=== PATIENT | female | born 1940 | race Caucasian/White ===

== ENCOUNTER → 2017-02-12 | Outpatient (CLI) | payer MEDICARE, MEDICAID ==
[2017-02-12 10:54] LABS: ABSOLUTE EOSINOPHILS # (AUTO) 0.1 10^3/uL (0.0-0.6); ABSOLUTE LYMPHOCYTES (AUTO) 1.2 10^3/uL (0.5-4.7); ABSOLUTE MONOCYTES (AUTO) 0.4 10^3/uL (0.1-1.4); ABSOLUTE NEUT (AUTO) 4.6 10^3/uL (1.7-8.2); BASOPHILS % (AUTO) 0.5 % (0-2); EOSINOPHILS % (AUTO) 2.1 % (0-6); HEMATOCRIT 44.1 % (36.0-47.0); HEMOGLOBIN 14.8 g/dL (12.0-15.5); HGB HCT DIFFERENCE 0.3; LYMPHOCYTES % (AUTO) 18.2 % (13-45); MEAN CORPUSCULAR HEMOGLOBIN 30.7 pg (27.0-33.4); MEAN CORPUSCULAR HGB CONC 33.5 g/dL (32.0-36.0); MEAN CORPUSCULAR VOLUME 92 fl (80-97); MONOCYTES % (AUTO) 6.4 % (3-13); SEGMENTED NEUTROPHILS % (AUTO) 72.8 % (42-78); WHITE BLOOD COUNT 6.3 10^3/uL (4.0-10.5)
[2017-02-12 11:18] LABS: ALANINE AMINOTRANSFERASE 32 U/L (9-52); ALBUMIN 4.4 g/dL (3.5-5.0); ALKALINE PHOSPHATASE 78 U/L (38-126); ANION GAP 11 (5-19); ASPARTATE AMINO TRANSFERASE 26 U/L (14-36); BILIRUBIN,DIRECT 0.4 mg/dL (0.0-0.4); BILIRUBIN,TOTAL 0.6 mg/dL (0.2-1.3); BLOOD UREA NITROGEN 27 mg/dL (7-20); CALCIUM 10.4 mg/dL (8.4-10.2); CARBON DIOXIDE 27 mmol/L (22-30); CHLORIDE 105 mmol/L (98-107); Direct HDL 38 mg/dL (>40); GLUCOSE 124 mg/dL (75-110); SODIUM 142.9 mmol/L (137-145); TOTAL PROTEIN 7.9 g/dL (6.3-8.2); TRIGLYCERIDES 317 mg/dL (<150)
[2017-02-12 11:29] LABS: DIRECT LDL 136 mg/dL (<100)
[2017-02-12 11:34] LABS: VLDL CHOLESTEROL 63.4 mg/dL (10-31)
[2017-02-12 11:40] LABS: POTASSIUM 5.9 mmol/L (3.6-5.0)
== END ==
LOC: OD 09:31
PROVIDERS: ATTEND Internal Medicine
DX: I12.9 Hypertensive chronic kidney disease with stage 1 through stage 4 chronic kidney disease, or unspecified chronic kidney disease (principal); N18.9 Chronic kidney disease, unspecified; E11.9 Type 2 diabetes mellitus without complications; E78.5 Hyperlipidemia, unspecified; R53.82 Chronic fatigue, unspecified
CPT/HCPCS: 36415; 80053; 80061; 83036; 84443; 85025

== ENCOUNTER → 2017-03-11 | Outpatient (CLI) | payer MEDICARE, MEDICAID ==
[2017-03-11 13:00] LABS: MAGNESIUM 1.7 mg/dL (1.6-2.3)
== END ==
LOC: OD 11:58
PROVIDERS: ATTEND Internal Medicine
DX: E87.5 Hyperkalemia (principal)
CPT/HCPCS: 36415; 83735; 84132

== ENCOUNTER 2017-10-17 16:17 | Inpatient (IN) | payer MEDICARE, MEDICAID ==
[2017-10-17 16:59] LABS: ABSOLUTE LYMPHOCYTES (AUTO) 0.4 10^3/uL (0.5-4.7); ABSOLUTE MONOCYTES (AUTO) 0.3 10^3/uL (0.1-1.4); ABSOLUTE NEUT (AUTO) 5.5 10^3/uL (1.7-8.2); BASOPHILS % (AUTO) 0.2 % (0-2); EOSINOPHILS % (AUTO) 0.1 % (0-6); HEMATOCRIT 40.7 % (36.0-47.0); HEMOGLOBIN 14.1 g/dL (12.0-15.5); LYMPHOCYTES % (AUTO) 6.6 % (13-45); MEAN CORPUSCULAR HEMOGLOBIN 30.8 pg (27.0-33.4); MEAN CORPUSCULAR HGB CONC 34.6 g/dL (32.0-36.0); MEAN CORPUSCULAR VOLUME 89 fl (80-97); MONOCYTES % (AUTO) 5.1 % (3-13); PLATELET COUNT 332 10^3/uL (150-450); RED BLOOD COUNT 4.57 10^6/uL (3.72-5.28); RED CELL DISTRIBUTION WIDTH 13.3 % (11.5-14.0); TOTAL CELLS COUNTED % (AUTO) 100 %; WHITE BLOOD COUNT 6.2 10^3/uL (4.0-10.5)
--- NOTE | 2017-10-17 17:13 | RADIOLOGY REPORT (SQ) ---
EXAM DESCRIPTION: CHEST SINGLE VIEW COMPLETED DATE/TIME: 10/17/2017 4:51 pm REASON FOR STUDY: bed 8 db COMPARISON: February 2015 EXAM PARAMETERS: NUMBER OF VIEWS: One view. TECHNIQUE: Single frontal radiographic view of the chest acquired. RADIATION DOSE: NA LIMITATIONS: None. FINDINGS: LUNGS AND PLEURA: No opacities, masses or pneumothorax. No pleural effusion. MEDIASTINUM AND HILAR STRUCTURES: No masses. Contour normal. HEART AND VASCULAR STRUCTURES: Heart normal in size. Normal vasculature. BONES: No acute findings. HARDWARE: Shunt catheter is again identified overlying the right hemithorax medially. OTHER: No other significant finding. IMPRESSION: NO ACUTE RADIOGRAPHIC FINDING IN THE CHEST. TECHNICAL DOCUMENTATION: JOB ID: [id number] [employer]- All Rights Reserved
--- NOTE | 2017-10-17 17:24 | EKG REPORT ---
SEVERITY:- ABNORMAL ECG - SINUS TACHYCARDIA PROBABLE LEFT ATRIAL ABNORMALITY : Confirmed by: Yon Medina 17-Oct-2017 17:24:03
[2017-10-17] MEDS ORDERED: METHYLPREDNISOLONE INJ 125 MG/2 ML SDV IV ONE (18:22)
[2017-10-17] MEDS ORDERED: IPRATROPIUM/ALBUTEROL 0.5-2.5 MG/3 ML AMPUL NEB ONE (18:22)
--- NOTE | 2017-10-17 18:22 | ER Document Report ---
ED Respiratory Problem - General Chief Complaint: Breathing Difficulty Stated Complaint: BREATHING DIFFICULTY Time Seen by Provider: 10/17/17 17:35 Notes: Patient has been struggling with difficulty breathing for the last 2 weeks. Has been on antibiotics. Went to her primary care doctors today. Was apparently hypoxic and tachycardic with significant work of breathing. EMS was called. Patient brought to the hospital by EMS. Patient was given breathing treatments in route. Patient denies any recent surgeries. No prior history of blood clots. Denies any pain in her legs. Did have a fever but no fever today. TRAVEL OUTSIDE OF THE [place] IN LAST 30 DAYS: No - HPI Patient complains to provider of: COPD, Cough, Short of breath Onset: Last week Duration: Worse/persistent Short of Breath: Moderate Cough: Nonproductive Sputum amount: None - Related Data Allergies/Adverse Reactions: aspirin [Aspirin] Allergy (Mild, Verified 10/17/17 17:08) RASH Past Medical History - General Information source: Patient - Social History Smoking Status: Current Every Day Smoker Chew tobacco use (# tins/day): No Frequency of alcohol use: None Drug Abuse: None Lives with: Family Family History: Reviewed & Not Pertinent Patient has suicidal ideation: No Patient has homicidal ideation: No - Past Medical History Cardiac Medical History: Reports: Hx Hypertension Denies: Hx Heart Attack Pulmonary Medical History: Reports: Hx Bronchitis, Hx COPD, Hx Pneumonia Denies: Hx Asthma, Hx Tuberculosis Neurological Medical History: Denies: Hx Cerebrovascular Accident, Hx Seizures Endocrine Medical History: Reports: Hx Diabetes Mellitus Type 2 Renal/ Medical History: Denies: Hx Peritoneal Dialysis GI Medical History: Denies: Hx Hepatitis, Hx Hiatal Hernia, Hx Ulcer Psychiatric Medical History: Denies: Hx Depression Infectious Medical History: Denies: Hx Hepatitis Past Surgical History: Reports: Hx Cholecystectomy. Denies: Hx Hysterectomy, Hx Mastectomy, Hx Open Heart Surgery, Hx Pacemaker - Immunizations Hx Pneumococcal Vaccination: 09/25/14 Review of Systems - Review of Systems Constitutional: No symptoms reported, Fever. denies: Chills, Malaise, Weakness EENT: No symptoms reported. denies: Throat pain, Difficulty swallowing, Mouth pain Cardiovascular: No symptoms reported, Palpitations. denies: Heart racing, Syncope, Dizziness, Lightheaded Respiratory: No symptoms reported, Cough, Hurts to breathe, Short of breath, Wheezing Gastrointestinal: No symptoms reported. denies: Abdominal pain, Nausea, Vomiting Genitourinary: No symptoms reported. denies: Burning, Dysuria, Discharge Musculoskeletal: No symptoms reported. denies: Muscle pain, Muscle stiffness, Deformity, Leg swelling, Ankle swelling Skin: denies: Lesions, Lumps, Rash Hematologic/Lymphatic: No symptoms reported. denies: Anemia, Blood clots, Easy bleeding, Easy bruising Neurological/Psychological: No symptoms reported. denies: Confusion, Dementia, Depression, Weakness Physical Exam - Vital signs Vitals: Temp Pulse Resp BP Pulse Ox 98.2 F 98 18 119/71 94 10/17/17 16:44 10/17/17 16:44 10/17/17 16:44 10/17/17 16:44 10/17/17 16:44 Interpretation: Tachycardic, Tachypneic - General General appearance: Appears well, Alert - HEENT Head: Normocephalic, Atraumatic Eyes: Normal Pupils: PERRL - Respiratory Respiratory status: No respiratory distress Chest status: Nontender Breath sounds: Decreased air movement, Nonproductive cough, Wheezing Chest palpation: Normal - Cardiovascular Rhythm: Tachycardia Heart sounds: Normal auscultation Murmur: No - Abdominal Inspection: Normal Distension: No distension Bowel sounds: Normal Tenderness: Nontender Organomegaly: No organomegaly - Back Back: Normal, Nontender - Extremities General upper extremity: Normal inspection, Nontender, Normal color, Normal ROM , Normal temperature General lower extremity: Normal inspection, Nontender, Normal color, Normal ROM , Normal temperature, Normal weight bearing. No: Edema, Fco's sign - Neurological Neuro grossly intact: Yes Cognition: Normal Orientation: AAOx4 [place] Coma Scale Eye Opening: Spontaneous [place] Coma Scale Verbal: Oriented [place] Coma Scale Motor: Obeys Commands [place] Coma Scale Total: 15 Speech: Normal Motor strength normal: LUE, RUE, LLE, RLE Sensory: Normal - Psychological Associated symptoms: Normal affect, Normal mood - Skin Skin Temperature: Warm Skin Moisture: Dry Skin Color: Normal Course - Re-evaluation Re-evalutation: 10/17/17 19:11 Patient with long-standing history of tobacco use. Increased wheezing and worsening symptoms. Sinus tachycardia. Patient likely with failed outpatient treatment for COPD exacerbation. Will get labs, breathing treatment, steroids and possible admit. 10/17/17 20:06 Laboratory 10/17/17 10/17/17 10/17/17 16:48 16:48 16:48 WBC 6.2 RBC 4.57 Hgb 14.1 Hct 40.7 MCV 89 MCH 30.8 MCHC 34.6 RDW 13.3 Plt Count 332 Seg Neutrophils % 88.0 H Lymphocytes % 6.6 L Monocytes % 5.1 Eosinophils % 0.1 Basophils % 0.2 Absolute Neutrophils 5.5 Absolute Lymphocytes 0.4 L Absolute Monocytes 0.3 Absolute Eosinophils 0.0 Absolute Basophils 0.0 D-Dimer Sodium Cancelled Potassium Cancelled Chloride Cancelled Carbon Dioxide Cancelled Anion Gap Cancelled BUN Cancelled Creatinine Cancelled Est GFR ( Amer) Cancelled Est GFR (Non-Af Amer) Cancelled Glucose Cancelled Calcium Cancelled Total Bilirubin Cancelled Direct Bilirubin Cancelled Neonat Total Bilirubin Cancelled Neonat Direct Bilirubin Cancelled Neonat Indirect Bili Cancelled AST Cancelled ALT Cancelled Alkaline Phosphatase Cancelled Creatine Kinase Cancelled CK-MB (CK-2) Cancelled Troponin I Cancelled Total Protein Cancelled Albumin Cancelled 10/17/17 10/17/17 10/17/17 18:48 18:48 18:48 WBC RBC Hgb Hct MCV MCH MCHC RDW Plt Count Seg Neutrophils % Lymphocytes % Monocytes % Eosinophils % Basophils % Absolute Neutrophils Absolute Lymphocytes Absolute Monocytes Absolute Eosinophils Absolute Basophils D-Dimer 0.35 Sodium 144.2 Potassium 3.4 L Chloride 104 Carbon Dioxide 26 Anion Gap 14 BUN 16 Creatinine 1.39 H Est GFR ( Amer) 45 L Est GFR (Non-Af Amer) 37 L Glucose 186 H Calcium 10.0 Total Bilirubin 0.4 Direct Bilirubin 0.3 Neonat Total Bilirubin Not Reportable Neonat Direct Bilirubin Not Reportable Neonat Indirect Bili Not Reportable AST 27 ALT 51 Alkaline Phosphatase 68 Creatine Kinase 72 CK-MB (CK-2) 2.44 Troponin I 0.016 Total Protein 7.1 Albumin 4.3 Chest X-Ray 10/17/17 16:19 IMPRESSION: NO ACUTE RADIOGRAPHIC FINDING IN THE CHEST. - Vital Signs Vital signs: Temp Pulse Resp BP Pulse Ox 98.2 F 101 H 26 H 119/71 94 10/17/17 17:03 10/17/17 17:03 10/17/17 19:00 10/17/17 17:03 10/17/17 17:03 - Laboratory Result Diagrams: 10/17/17 16:48 10/17/17 18:48 Laboratory results interpreted by me: 10/17/17 10/17/17 16:48 18:48 Seg Neutrophils % 88.0 H Lymphocytes % 6.6 L Absolute Lymphocytes 0.4 L Potassium 3.4 L Creatinine 1.39 H Est GFR ( Amer) 45 L Est GFR (Non-Af Amer) 37 L Glucose 186 H - EKG Interpretation by Nv EKG shows normal: [place], Intervals, QRS Complexes, ST-T Waves Rate: Tachycardia Rhythm: APC's Discharge - Discharge Clinical Impression: COPD exacerbation Condition: Good Unit Admitted: Telemetry Referrals: BRENNAN FELICIANO MD [Primary Care Provider] - Follow up as needed
[2017-10-17 19:24] LABS: ALANINE AMINOTRANSFERASE 51 U/L (9-52); ALBUMIN 4.3 g/dL (3.5-5.0); ALKALINE PHOSPHATASE 68 U/L (38-126); ANION GAP 14 (5-19); ASPARTATE AMINO TRANSFERASE 27 U/L (14-36); BILIRUBIN,DIRECT 0.3 mg/dL (0.0-0.4); BILIRUBIN,TOTAL 0.4 mg/dL (0.2-1.3); BLOOD UREA NITROGEN 16 mg/dL (7-20); CARBON DIOXIDE 26 mmol/L (22-30); CHLORIDE 104 mmol/L (98-107); CREATINE KINASE 72 U/L (30-135); GLUCOSE 186 mg/dL (75-110); POTASSIUM 3.4 mmol/L (3.6-5.0); SODIUM 144.2 mmol/L (137-145); TOTAL PROTEIN 7.1 g/dL (6.3-8.2)
[2017-10-17 19:35] LABS: CREATINE KINASE MB 2.44 ng/mL (<4.55); TROPONIN I 0.016 ng/mL
[2017-10-17] MEDS ORDERED: CEFTRIAXONE 1 GM/D5W RTU 1 GM/50 ML RTUPB IV ONE (19:40)
[2017-10-17] MEDS ORDERED: DOXYCYCLINE HYCLATE 100 MG TABLET PO ONE (19:41)
[2017-10-17] MEDS ORDERED: HYDRALAZINE HCL INJ/PF 20 MG/1 ML SDV IV PRN (20:13)
[2017-10-17] MEDS ORDERED: IPRATROPIUM/ALBUTEROL 0.5-2.5 MG/3 ML AMPUL NEB PRN (20:14)
[2017-10-17] MEDS ORDERED: GLUCAGON,HUMAN RECOMB 1 MG INJ IM PRN (20:14)
[2017-10-17] MEDS ORDERED: GUAIFENESIN SYRP 200 MG/10 ML UDC PO PRN (20:14)
[2017-10-17] MEDS ORDERED: DEXTROSE 40% GEL 15 GM TUBE PO PRN ×2 (20:14)
[2017-10-17] MEDS ORDERED: DEXTROSE 50%-WATER 25 GM/50 ML DISP.SYRIN IV PRN ×2 (20:14)
[2017-10-17 20:53] LABS: COLOR,URINE YELLOW
[2017-10-17 20:54] LABS: BILIRUBIN,URINE MODERATE (NEGATIVE); GLUCOSE, URINE NEGATIVE (NEGATIVE); KETONES,URINE 25 mg/dL (NEGATIVE); URINE SPECIFIC GRAVITY 1.029
[2017-10-17 20:55] LABS: NITRITE,URINE NEGATIVE (NEGATIVE); PROTEIN,URINE 100 mg/dL (NEGATIVE)
[2017-10-17 20:56] LABS: LEUKOCYTE ESTERASE,URINE LARGE (NEGATIVE)
[2017-10-17 20:57] LABS: APPEARANCE,URINE SLIGHTLY-CLOUDY
[2017-10-17] MEDS ORDERED: CEFTRIAXONE SODIUM 1,000 MG in DEXTROSE 5%-WATER 50 ML IV SCH (21:00)
[2017-10-17] MEDS ORDERED: CHLORPHENIRAMINE MALEATE 4 MG TABLET PO ONE (21:00)
[2017-10-17] MEDS ORDERED: LEVOFLOXACIN 750 MG/D5W RTU 750 MG/150 ML RTUPB IV SCH (22:00)
[2017-10-17] MEDS: FLUTICASONE NASAL SPRAY 50 MCG/SPRY 120 SPRAY/16 GM NASL SCH (22:24)
[2017-10-17] MEDS ORDERED: ALPRAZOLAM 0.5 MG TABLET PO PRN (22:24)
[2017-10-17] MEDS: GUAIFENESIN 600 MG TABLET.SA PO SCH (22:24)
[2017-10-17] MEDS: HEPARIN SOD (PORCINE) 5,000 UNIT/ML 1 ML SYRINGE SUBCUT SCH (22:26)
[2017-10-17] MEDS: INSULIN LISPRO 100 UNIT/ML 3 ML VIAL SUBCUT PRN (23:45)
[2017-10-18] MEDS ORDERED: INFLUENZA ADLT QUAD (36MOS+) 2017-18 VAC 0.5 ML SYR IM PRN (00:43)
[2017-10-18] MEDS: IPRATROPIUM/ALBUTEROL 0.5-2.5 MG/3 ML AMPUL NEB SCH ×4 (02:07→19:31)
--- NOTE | 2017-10-18 03:57 | PDOC H&P ---
History of Present Illness Admission Date/PCP: 10/17/17 21:01 BRENNAN FELICIANO, Patient complains of: Shortness of breath History of Present Illness: KASANDRA GRIGGS is a 77 year old female with a past medical history of hypertension, diabetes, TTP, benzodiazepine dependent anxiety, COPD, Tobacco Dependence, and acute on chronic bronchitis. Patient has failed outpatient treatment of bronchitis with a small round pink tablet antibiotic once a day ( unknown to the patient). She followed up with primary care today and was found hypoxic, tachypneic and referred to the emergency department. In the emergency room she was found to be tachypneic with oxygen saturations in the 80s on room air but an otherwise unremarkable workup. She receives Rocephin, albuterol and Atrovent then referred to the hospitalist for admission. Patient admits sinus drainage and rhinorrhea, denies chest pain palpitations or GERD. Past Medical History Cardiac Medical History: Reports: Hypertension Denies: Myocardial Infarction Pulmonary Medical History: Reports: Bronchitis, Chronic Obstructive Pulmonary Disease (COPD), Pneumonia Denies: Asthma, Tuberculosis Neurological Medical History: Denies: Seizures Endocrine Medical History: Reports: Diabetes Mellitus Type 2 GI Medical History: Denies: Hepatitis, Hiatal Hernia Psychiatric Medical History: Reports: General Anxiety Disorder Denies: Depression Hematology: Denies: Anemia, Sickle Cell Disease Past Surgical History Past Surgical History: Reports: Cholecystectomy Denies: Amputation, Hysterectomy, Mastectomy, Pacemaker Social History Information Source: Patient, [facility] Records Lives with: Family Smoking Status: Current Every Day Smoker Frequency of Alcohol Use: None Hx Recreational Drug Use: No Drugs: None Hx Prescription Drug Abuse: No - Advance Directive Resuscitation Status: Full Code Family History Family History: Hypertension Parental Family History Reviewed: Yes Children Family History Reviewed: Yes Sibling(s) Family History Reviewed.: Yes Medication/Allergy Home Medications: Albuterol Sulfate [Ventolin HFA MDI 18 GM] 2 puff IH Q6HP PRN 10/17/17 Alprazolam [Xanax 0.5 mg Tablet] 0.5 mg PO Q8HP PRN 10/17/17 Atorvastatin Calcium [Lipitor 10 mg Tablet] 10 mg PO DAILY 10/17/17 Budesonide/Formoterol Fumarate [Symbicort 160-4.5 Mcg Inhaler] 2 puff IH Q12 Fluoxetine HCl [Prozac] 40 mg PO QAM 10/17/17 Hydrochlorothiazide [Hydrodiuril 25 mg Tablet] 25 mg PO QAM 10/17/17 Metformin HCl [Metformin HCl ER] 500 mg PO BIDBS 10/17/17 Omeprazole 20 mg PO DAILY 10/17/17 Allergies/Adverse Reactions: aspirin [Aspirin] Allergy (Mild, Verified 10/17/17 17:08) RASH Review of Systems Constitutional: ABSENT: chills, fever(s), headache(s), weight gain, weight loss Eyes: ABSENT: visual disturbances Ears: ABSENT: hearing changes Cardiovascular: ABSENT: chest pain, dyspnea on exertion, edema, orthropnea, palpitations Respiratory: ABSENT: cough, hemoptysis Gastrointestinal: ABSENT: abdominal pain, constipation, diarrhea, hematemesis, hematochezia, nausea, vomiting Genitourinary: ABSENT: dysuria, hematuria Musculoskeletal: ABSENT: joint swelling Integumentary: ABSENT: rash, wounds Neurological: ABSENT: abnormal gait, abnormal speech, confusion, dizziness, focal weakness, syncope Psychiatric: ABSENT: anxiety, depression, homidical ideation, suicidal ideation Endocrine: ABSENT: cold intolerance, heat intolerance, polydipsia, polyuria Hematologic/Lymphatic: ABSENT: easy bleeding, easy bruising Physical Exam Vital Signs: Temp Pulse Resp BP Pulse Ox 98.0 F 79 16 145/84 H 95 10/18/17 00:31 10/18/17 02:09 10/18/17 02:09 10/18/17 00:31 10/18/17 02:09 Intake & Output 10/16/17 10/17/17 10/18/17 11:59 11:59 11:59 Weight 61.2 kg General appearance: PRESENT: cooperative, mild distress Head exam: PRESENT: atraumatic, normocephalic Eye exam: PRESENT: conjunctival injection, EOMI, PERRLA. ABSENT: conjunctiva pale, scleral icterus Ear exam: PRESENT: normal external ear exam Mouth exam: PRESENT: moist, tongue midline Neck exam: ABSENT: carotid bruit, JVD, lymphadenopathy, thyromegaly Respiratory exam: PRESENT: accessory muscle use, clear to auscultation earnest, crackles, symmetrical, tachypnea. ABSENT: rales, rhonchi, stridor, wheezes Cardiovascular exam: PRESENT: RRR. ABSENT: diastolic murmur, rubs, systolic murmur Pulses: PRESENT: normal dorsalis pedis pul Vascular exam: PRESENT: normal capillary refill GI/Abdominal exam: PRESENT: normal bowel sounds, soft. ABSENT: distended, guarding, mass, organolmegaly, rebound, tenderness Rectal exam: PRESENT: deferred Extremities exam: PRESENT: full ROM. ABSENT: calf tenderness, clubbing, pedal edema Neurological exam: PRESENT: alert, awake, oriented to person, oriented to place , oriented to time, oriented to situation, CN II-XII grossly intact. ABSENT: motor sensory deficit Psychiatric exam: PRESENT: anxious Skin exam: PRESENT: dry, intact, warm. ABSENT: cyanosis, rash Results Laboratory Results: 10/17/17 10/18/17 22:30 02:56 Lactic Acid 4.2 H 3.4 H Impressions: Chest X-Ray 10/17/17 16:19 IMPRESSION: NO ACUTE RADIOGRAPHIC FINDING IN THE CHEST. Assessment & Plan - Diagnosis (1) Acute exacerbation of chronic bronchitis Is this a current diagnosis for this admission?: Yes Plan: Complicated by COPD currently requiring oxygen. Telemetry observation flutter valve, incentive spirometry, Flonase, chlorpheniramine, albuterol and Atrovent, empiric antibiotics. (2) COPD exacerbation Is this a current diagnosis for this admission?: Yes Plan: Please see #1 (3) Anxiety Is this a current diagnosis for this admission?: Yes Plan: Low-dose Xanax as needed (4) Tobacco dependency Is this a current diagnosis for this admission?: Yes Plan: Tobacco Dependence patient received tobacco cessation counseling and offered nicotine replacement options (5) Diabetes mellitus Is this a current diagnosis for this admission?: Yes Plan: Home regiment with sliding scale insulin - Time Time Spent: 50 to 70 Minutes
[2017-10-18] MEDS: HEPARIN SOD (PORCINE) 5,000 UNIT/ML 1 ML SYRINGE SUBCUT SCH ×3 (05:30→22:10)
--- NOTE | 2017-10-18 09:07 | PDOC PROGRESS REPORT ---
Subjective Progress Note for:: 10/18/17 Subjective:: The patient continues to be short of breath. She states that she has a lot of cough. Reason For Visit: COPD EXACERBATION ACUTE ON CHRONIC BRONCHITIS Physical Exam Vital Signs: Temp Pulse Resp BP Pulse Ox 98.1 F 103 H 24 H 126/64 H 88 L 10/18/17 03:42 10/18/17 08:09 10/18/17 08:09 10/18/17 03:42 10/18/17 08:09 Intake & Output 10/17/17 10/18/17 10/19/17 06:59 06:59 06:59 Weight 61.2 kg General appearance: PRESENT: mild distress Head exam: PRESENT: atraumatic Eye exam: PRESENT: conjunctival injection Neck exam: ABSENT: carotid bruit, JVD Respiratory exam: PRESENT: rhonchi, tachypnea, wheezes Cardiovascular exam: PRESENT: RRR, +S1, +S2 Pulses: PRESENT: +1 pedal pulses bilateral GI/Abdominal exam: PRESENT: normal bowel sounds, soft Extremities exam: PRESENT: full ROM, tenderness Musculoskeletal exam: PRESENT: ambulatory, tenderness Neurological exam: PRESENT: alert, awake Results Laboratory Results: 10/17/17 10/18/17 22:30 02:56 Lactic Acid 4.2 H 3.4 H Impressions: Chest X-Ray 10/17/17 16:19 IMPRESSION: NO ACUTE RADIOGRAPHIC FINDING IN THE CHEST. Assessment & Plan - Diagnosis (1) Acute exacerbation of chronic bronchitis Is this a current diagnosis for this admission?: Yes Plan: We will continue with steroids and antibiotics (2) Anxiety Is this a current diagnosis for this admission?: Yes Plan: We will increase Xanax to every 6 hours (3) COPD exacerbation Is this a current diagnosis for this admission?: Yes Plan: Continue steroids and nebulization treatments (4) Tobacco dependency Is this a current diagnosis for this admission?: Yes (5) Diabetes mellitus Qualifiers: Diabetes mellitus type: type 2 Diabetes mellitus complication status: without complication Is this a current diagnosis for this admission?: Yes Plan: Because of steroids IV will continue with insulin sliding scale and continue with Metformin
[2017-10-18] MEDS: LANSOPRAZOLE 15 MG TAB.RAP.DR PO SCH (09:46)
[2017-10-18] MEDS: ATORVASTATIN CALCIUM 10 MG TABLET PO SCH (09:46)
[2017-10-18] MEDS: CEFTRIAXONE SODIUM 1,000 MG in DEXTROSE 5%-WATER 50 ML IV SCH (09:47)
[2017-10-18] MEDS: GUAIFENESIN 600 MG TABLET.SA PO SCH ×2 (09:47→22:10)
[2017-10-18] MEDS: ALPRAZOLAM 0.5 MG TABLET PO PRN ×2 (09:47→16:53)
[2017-10-18] MEDS: FLUTICASONE NASAL SPRAY 50 MCG/SPRY 120 SPRAY/16 GM NASL SCH ×2 (09:56→22:10)
[2017-10-18] MEDS ORDERED: CEFTRIAXONE 1 GM/D5W RTU 50 ML IV SCH (10:00)
[2017-10-18] MEDS ORDERED: LEVOFLOXACIN 500 MG TABLET PO SCH (10:00)
[2017-10-18] MEDS ORDERED: FLUOXETINE HCL 20 MG CAPSULE PO ONE (10:30)
[2017-10-18] MEDS ORDERED: FLUCONAZOLE 100 MG TABLET PO ONE ×2 (12:30→16:45)
[2017-10-18] MEDS: METHYLPREDNISOLONE INJ 125 MG/2 ML SDV IV SCH ×2 (16:36→18:08)
[2017-10-18] MEDS: METFORMIN HCL 500 MG TABLET PO SCH (16:53)
[2017-10-18] MEDS ORDERED: (PENDING PHARMACY ID) (Metformin Hcl [Metformin Hcl Er] 500 MG) PO SCH (17:00)
[2017-10-18] MEDS: INSULIN LISPRO 100 UNIT/ML 3 ML VIAL SUBCUT PRN (22:42)
[2017-10-19] MEDS: METHYLPREDNISOLONE INJ 125 MG/2 ML SDV IV SCH ×4 (00:04→16:58)
[2017-10-19] MEDS: IPRATROPIUM/ALBUTEROL 0.5-2.5 MG/3 ML AMPUL NEB SCH ×4 (01:41→20:30)
[2017-10-19 05:31] LABS: ANION GAP 12 (5-19); BLOOD UREA NITROGEN 34 mg/dL (7-20); CARBON DIOXIDE 25 mmol/L (22-30); CHLORIDE 105 mmol/L (98-107); GLUCOSE 195 mg/dL (75-110); MAGNESIUM 1.5 mg/dL (1.6-2.3); POTASSIUM 3.9 mmol/L (3.6-5.0); SODIUM 142.4 mmol/L (137-145)
[2017-10-19] MEDS: HEPARIN SOD (PORCINE) 5,000 UNIT/ML 1 ML SYRINGE SUBCUT SCH ×3 (05:34→21:08)
[2017-10-19] MEDS: FLUOXETINE HCL 20 MG CAPSULE PO SCH (08:08)
[2017-10-19] MEDS: METFORMIN HCL 500 MG TABLET PO SCH ×2 (08:08→16:58)
[2017-10-19] MEDS: INSULIN LISPRO 100 UNIT/ML 3 ML VIAL SUBCUT PRN ×4 (08:08→21:21)
[2017-10-19] MEDS: ATORVASTATIN CALCIUM 10 MG TABLET PO SCH (10:20)
[2017-10-19] MEDS: CEFTRIAXONE SODIUM 1,000 MG in DEXTROSE 5%-WATER 50 ML IV SCH (10:21)
[2017-10-19] MEDS: GUAIFENESIN 600 MG TABLET.SA PO SCH ×2 (10:21→21:08)
[2017-10-19] MEDS: LANSOPRAZOLE 15 MG TAB.RAP.DR PO SCH (10:21)
[2017-10-19] MEDS: FLUTICASONE NASAL SPRAY 50 MCG/SPRY 120 SPRAY/16 GM NASL SCH ×2 (10:21→21:17)
--- NOTE | 2017-10-19 10:38 | PDOC PROGRESS REPORT ---
Subjective Progress Note for:: 10/19/17 Subjective:: Patient denies any complaints today. Reason For Visit: EXAC COPD Physical Exam Vital Signs: Temp Pulse Resp BP Pulse Ox 98.0 F 99 20 132/80 H 92 10/19/17 07:57 10/19/17 07:57 10/19/17 07:57 10/19/17 07:57 10/19/17 07:57 Intake & Output 10/18/17 10/19/17 10/20/17 06:59 06:59 06:59 Intake Total 340 Balance 340 Weight 63.7 kg General appearance: PRESENT: no acute distress Eye exam: PRESENT: conjunctiva pink. ABSENT: scleral icterus Mouth exam: PRESENT: moist, tongue midline Neck exam: ABSENT: JVD Respiratory exam: PRESENT: clear to auscultation earnest. ABSENT: rales, rhonchi, wheezes Cardiovascular exam: PRESENT: RRR. ABSENT: diastolic murmur, rubs, systolic murmur GI/Abdominal exam: PRESENT: normal bowel sounds, soft. ABSENT: distended, guarding, mass, organolmegaly, rebound, tenderness Extremities exam: ABSENT: calf tenderness, clubbing, pedal edema Neurological exam: PRESENT: alert, awake, oriented to person, oriented to place , oriented to time, oriented to situation, CN II-XII grossly intact. ABSENT: motor sensory deficit Psychiatric exam: PRESENT: appropriate affect Skin exam: PRESENT: dry, intact, warm. ABSENT: cyanosis, rash Results Laboratory Results: 10/19/17 04:08 10/19/17 04:08 Sodium 142.4 Potassium 3.9 Chloride 105 Carbon Dioxide 25 Anion Gap 12 BUN 34 H Creatinine 1.16 Est GFR ( Amer) 55 L Est GFR (Non-Af Amer) 45 L Glucose 195 H Calcium 10.0 Magnesium 1.5 L Impressions: Chest X-Ray 10/17/17 16:19 IMPRESSION: NO ACUTE RADIOGRAPHIC FINDING IN THE CHEST. Assessment & Plan - Diagnosis (1) Acute exacerbation of chronic bronchitis Is this a current diagnosis for this admission?: Yes Plan: Currently on Rocephin and Levaquin. (2) Anxiety Is this a current diagnosis for this admission?: Yes (3) COPD exacerbation Is this a current diagnosis for this admission?: Yes Plan: Continue with Solu-Medrol. (4) Tobacco dependency Is this a current diagnosis for this admission?: Yes (5) Diabetes mellitus Qualifiers: Diabetes mellitus type: type 2 Diabetes mellitus complication status: without complication Is this a current diagnosis for this admission?: Yes Plan: On Glucophage and sliding scale insulin. - Time Time Spent with patient: 25-34 minutes - Inpatient Certification Medical Necessity: Need for IV Antibiotics
[2017-10-19] MEDS: ALPRAZOLAM 0.5 MG TABLET PO PRN ×2 (13:38→21:08)
[2017-10-19] MEDS: ACETAMINOPHEN 325 MG TABLET PO PRN (16:58)
[2017-10-19] MEDS ORDERED: LEVOFLOXACIN 750 MG TABLET PO SCH (22:00)
[2017-10-20] MEDS: METHYLPREDNISOLONE INJ 125 MG/2 ML SDV IV SCH ×3 (01:25→11:53)
[2017-10-20] MEDS: IPRATROPIUM/ALBUTEROL 0.5-2.5 MG/3 ML AMPUL NEB SCH ×4 (02:54→21:06)
[2017-10-20] MEDS: HEPARIN SOD (PORCINE) 5,000 UNIT/ML 1 ML SYRINGE SUBCUT SCH ×3 (06:21→22:41)
[2017-10-20] MEDS: ACETAMINOPHEN 325 MG TABLET PO PRN ×2 (06:32→19:23)
[2017-10-20] MEDS: FLUOXETINE HCL 20 MG CAPSULE PO SCH (07:51)
[2017-10-20] MEDS: METFORMIN HCL 500 MG TABLET PO SCH ×2 (07:51→17:07)
[2017-10-20] MEDS: INSULIN LISPRO 100 UNIT/ML 3 ML VIAL SUBCUT PRN ×3 (07:51→17:07)
[2017-10-20] MEDS: ATORVASTATIN CALCIUM 10 MG TABLET PO SCH (09:51)
[2017-10-20] MEDS: CEFTRIAXONE SODIUM 1,000 MG in DEXTROSE 5%-WATER 50 ML IV SCH (09:52)
[2017-10-20] MEDS: FLUTICASONE NASAL SPRAY 50 MCG/SPRY 120 SPRAY/16 GM NASL SCH ×2 (09:52→22:41)
[2017-10-20] MEDS: GUAIFENESIN 600 MG TABLET.SA PO SCH ×2 (09:52→22:41)
[2017-10-20] MEDS: LANSOPRAZOLE 15 MG TAB.RAP.DR PO SCH (09:52)
--- NOTE | 2017-10-20 13:04 | PDOC PROGRESS REPORT ---
Subjective Progress Note for:: 10/20/17 Subjective:: Patient denies any complaints today. Reason For Visit: EXAC COPD Physical Exam Vital Signs: Temp Pulse Resp BP Pulse Ox 97.3 F 102 H 19 142/83 H 96 10/20/17 12:00 10/20/17 12:00 10/20/17 12:00 10/20/17 12:00 10/20/17 12:00 Intake & Output 10/19/17 10/20/17 10/21/17 06:59 06:59 06:59 Intake Total 340 1420 Balance 340 1420 Weight 63.7 kg 62.6 kg General appearance: PRESENT: no acute distress Eye exam: PRESENT: conjunctiva pink. ABSENT: scleral icterus Mouth exam: PRESENT: moist, tongue midline Neck exam: ABSENT: JVD Respiratory exam: PRESENT: clear to auscultation earnest. ABSENT: rales, rhonchi, wheezes Cardiovascular exam: PRESENT: RRR. ABSENT: diastolic murmur, rubs, systolic murmur GI/Abdominal exam: PRESENT: normal bowel sounds, soft. ABSENT: distended, guarding, mass, organolmegaly, rebound, tenderness Extremities exam: ABSENT: calf tenderness, clubbing, pedal edema Neurological exam: PRESENT: alert, awake, oriented to person, oriented to place , oriented to time, oriented to situation, CN II-XII grossly intact. ABSENT: motor sensory deficit Psychiatric exam: PRESENT: appropriate affect Skin exam: PRESENT: dry, intact, warm. ABSENT: cyanosis, rash Results Laboratory Results: 10/19/17 04:08 Impressions: Chest X-Ray 10/17/17 16:19 IMPRESSION: NO ACUTE RADIOGRAPHIC FINDING IN THE CHEST. Assessment & Plan - Diagnosis (1) Acute exacerbation of chronic bronchitis Is this a current diagnosis for this admission?: Yes Plan: Currently on Rocephin and Levaquin. (2) Anxiety Is this a current diagnosis for this admission?: Yes (3) COPD exacerbation Is this a current diagnosis for this admission?: Yes Plan: she continues to improve. Will DC the Solu-Medrol and start on prednisone. (4) Tobacco dependency Is this a current diagnosis for this admission?: Yes (5) Diabetes mellitus Qualifiers: Diabetes mellitus type: type 2 Diabetes mellitus complication status: without complication Is this a current diagnosis for this admission?: Yes Plan: On Glucophage and sliding scale insulin. - Time Time Spent with patient: 15-24 minutes - Inpatient Certification Medical Necessity: Need for IV Antibiotics
[2017-10-20] MEDS: ALPRAZOLAM 0.5 MG TABLET PO PRN (19:23)
[2017-10-21] MEDS: IPRATROPIUM/ALBUTEROL 0.5-2.5 MG/3 ML AMPUL NEB SCH ×4 (01:48→20:34)
[2017-10-21 05:11] LABS: HEMATOCRIT 37.3 % (36.0-47.0); HEMOGLOBIN 12.6 g/dL (12.0-15.5); MEAN CORPUSCULAR HEMOGLOBIN 30.4 pg (27.0-33.4); MEAN CORPUSCULAR HGB CONC 33.7 g/dL (32.0-36.0); MEAN CORPUSCULAR VOLUME 90 fl (80-97); PLATELET COUNT 266 10^3/uL (150-450); RED BLOOD COUNT 4.14 10^6/uL (3.72-5.28); RED CELL DISTRIBUTION WIDTH 13.4 % (11.5-14.0); WHITE BLOOD COUNT 8.1 10^3/uL (4.0-10.5)
[2017-10-21 05:25] LABS: ANION GAP 13 (5-19); BLOOD UREA NITROGEN 50 mg/dL (7-20); CALCIUM 9.7 mg/dL (8.4-10.2); CARBON DIOXIDE 25 mmol/L (22-30); CHLORIDE 107 mmol/L (98-107); GLUCOSE 186 mg/dL (75-110); POTASSIUM 3.6 mmol/L (3.6-5.0); SODIUM 144.9 mmol/L (137-145)
[2017-10-21 06:04] LABS: ABSOLUTE LYMPHOCYTES# (MANUAL) 0.4 10^3/uL (0.5-4.7); ABSOLUTE MONOCYTES # (MANUAL) 0.5 10^3/uL (0.1-1.4); ABSOLUTE NEUTROPHILS# (MANUAL) 7.2 10^3/uL (1.7-8.2); BASOPHILS % (MANUAL) 0 % (0-2); EOSINOPHILS % (MANUAL) 0 % (0-6); LYMPHOCYTES % (MANUAL) 5 % (13-45); MONOCYTES % (MANUAL) 6 % (3-13); SEGMENTED NEUTROPHILS % (MAN) 89 % (42-78); TOTAL CELLS COUNTED 100
[2017-10-21 06:07] LABS: PLATELET COMMENT ADEQUATE; RBC MORPHOLOGY COMMENT NORMO-CYTIC/CHROMIC
[2017-10-21] MEDS: HEPARIN SOD (PORCINE) 5,000 UNIT/ML 1 ML SYRINGE SUBCUT SCH ×3 (06:15→23:14)
--- NOTE | 2017-10-21 08:35 | PDOC PROGRESS REPORT ---
Subjective Progress Note for:: 10/21/17 Subjective:: The patient is complaining of being very weak. She does not feel well. Her cough has improved slightly. She is not as short of breath as she was when she came in. Discussed the need for rehab to improve her stamina Reason For Visit: EXAC COPD Physical Exam Vital Signs: Temp Pulse Resp BP Pulse Ox 97.6 F 82 20 147/80 H 100 10/21/17 04:53 10/21/17 07:00 10/21/17 04:53 10/21/17 04:53 10/21/17 04:53 Intake & Output 10/20/17 10/21/17 10/22/17 06:59 06:59 06:59 Intake Total 1420 1180 Balance 1420 1180 Weight 62.6 kg 62.8 kg General appearance: PRESENT: mild distress Head exam: PRESENT: atraumatic Eye exam: PRESENT: conjunctival injection Neck exam: PRESENT: carotid bruit. ABSENT: JVD Respiratory exam: PRESENT: rhonchi. ABSENT: wheezes Cardiovascular exam: PRESENT: RRR, +S1, +S2 GI/Abdominal exam: PRESENT: normal bowel sounds, soft Extremities exam: PRESENT: tenderness Musculoskeletal exam: PRESENT: other Neurological exam: PRESENT: awake Results Laboratory Results: 10/21/17 04:12 10/21/17 04:12 10/21/17 10/21/17 04:12 04:12 WBC 8.1 RBC 4.14 Hgb 12.6 Hct 37.3 MCV 90 MCH 30.4 MCHC 33.7 RDW 13.4 Plt Count 266 Seg Neutrophils % Not Reportable Lymphocytes % Not Reportable Monocytes % Not Reportable Eosinophils % Not Reportable Basophils % Not Reportable Absolute Neutrophils Not Reportable Absolute Lymphocytes Not Reportable Absolute Monocytes Not Reportable Absolute Eosinophils Not Reportable Absolute Basophils Not Reportable Sodium 144.9 Potassium 3.6 Chloride 107 Carbon Dioxide 25 Anion Gap 13 BUN 50 H Creatinine 1.17 Est GFR ( Amer) 54 L Est GFR (Non-Af Amer) 45 L Glucose 186 H Calcium 9.7 Impressions: Chest X-Ray 10/17/17 16:19 IMPRESSION: NO ACUTE RADIOGRAPHIC FINDING IN THE CHEST. Assessment & Plan - Diagnosis (1) Acute exacerbation of chronic bronchitis Is this a current diagnosis for this admission?: Yes Plan: We will continue with steroids and antibiotics (2) Anxiety Is this a current diagnosis for this admission?: Yes (3) COPD exacerbation Is this a current diagnosis for this admission?: Yes Plan: Continue steroids and nebulization treatments (4) Tobacco dependency Is this a current diagnosis for this admission?: Yes Plan: Smoking cessation discussed in details (5) Diabetes mellitus Qualifiers: Diabetes mellitus type: type 2 Diabetes mellitus complication status: with hyperglycemia Is this a current diagnosis for this admission?: Yes Plan: Continue current treatment (6) Physical deconditioning Is this a current diagnosis for this admission?: Yes Plan: We will start physical therapy and consider rehab for strength and range of motion (7) Myopathy Is this a current diagnosis for this admission?: Yes Plan: Possibly related to high dose of steroids. Will wean off the steroids and start physical therapy (8) Bacterial pneumonia Is this a current diagnosis for this admission?: Yes Plan: Continue current antibiotics
[2017-10-21] MEDS ORDERED: PREDNISONE 20 MG TABLET PO SCH (10:00)
[2017-10-21] MEDS: CEFTRIAXONE SODIUM 1,000 MG in DEXTROSE 5%-WATER 50 ML IV SCH (10:08)
[2017-10-21] MEDS: FLUOXETINE HCL 20 MG CAPSULE PO SCH (10:09)
[2017-10-21] MEDS: GUAIFENESIN 600 MG TABLET.SA PO SCH ×2 (10:09→23:13)
[2017-10-21] MEDS: METFORMIN HCL 500 MG TABLET PO SCH ×2 (10:10→16:56)
[2017-10-21] MEDS: ATORVASTATIN CALCIUM 10 MG TABLET PO SCH (10:10)
[2017-10-21] MEDS: LANSOPRAZOLE 15 MG TAB.RAP.DR PO SCH (10:11)
[2017-10-21] MEDS: FLUTICASONE NASAL SPRAY 50 MCG/SPRY 120 SPRAY/16 GM NASL SCH ×2 (10:15→23:13)
[2017-10-21] MEDS: PREDNISONE 20 MG TABLET PO SCH ×2 (10:15→17:00)
[2017-10-21] MEDS: LEVOFLOXACIN 500 MG TABLET PO SCH (11:51)
--- NOTE | 2017-10-21 12:11 | RADIOLOGY REPORT (SQ) ---
EXAM DESCRIPTION: CHEST PA/LAT COMPLETED DATE/TIME: 10/21/2017 10:50 am REASON FOR STUDY: cough COMPARISON: Chest films since 05/07/2010, most recently 03/15/2015 EXAM PARAMETERS: NUMBER OF VIEWS: two views TECHNIQUE: Digital Frontal and Lateral radiographic views of the chest acquired. RADIATION DOSE: NA LIMITATIONS: none FINDINGS: LUNGS AND PLEURA: No opacities, masses or pneumothorax. No pleural effusion. MEDIASTINUM AND HILAR STRUCTURES: No masses or contour abnormalities. HEART AND VASCULAR STRUCTURES: Heart normal size. No evidence for failure. BONES: Old healed right posterolateral 6th rib fracture HARDWARE: Clips right upper quadrant post cholecystectomy. Ventriculoperitoneal shunt tubing over th e anterior right chest, intact. OTHER: No other significant finding. IMPRESSION: No acute findings TECHNICAL DOCUMENTATION: JOB ID: [id number] [employer]- All Rights Reserved
[2017-10-21] MEDS: INSULIN LISPRO 100 UNIT/ML 3 ML VIAL SUBCUT PRN ×2 (12:16→16:55)
[2017-10-21] MEDS: ALPRAZOLAM 0.5 MG TABLET PO PRN ×2 (16:56→23:13)
[2017-10-22] MEDS: IPRATROPIUM/ALBUTEROL 0.5-2.5 MG/3 ML AMPUL NEB SCH ×4 (02:25→20:52)
[2017-10-22] MEDS: HEPARIN SOD (PORCINE) 5,000 UNIT/ML 1 ML SYRINGE SUBCUT SCH ×3 (06:26→21:52)
[2017-10-22 07:20] LABS: HEMATOCRIT 37.8 % (36.0-47.0); HEMOGLOBIN 12.6 g/dL (12.0-15.5); MEAN CORPUSCULAR HEMOGLOBIN 30.2 pg (27.0-33.4); MEAN CORPUSCULAR HGB CONC 33.5 g/dL (32.0-36.0); MEAN CORPUSCULAR VOLUME 90 fl (80-97); PLATELET COUNT 252 10^3/uL (150-450); RED BLOOD COUNT 4.18 10^6/uL (3.72-5.28); RED CELL DISTRIBUTION WIDTH 13.4 % (11.5-14.0); WHITE BLOOD COUNT 6.3 10^3/uL (4.0-10.5)
[2017-10-22 07:44] LABS: ALANINE AMINOTRANSFERASE 37 U/L (9-52); ALBUMIN 3.6 g/dL (3.5-5.0); ALKALINE PHOSPHATASE 53 U/L (38-126); ANION GAP 12 (5-19); ASPARTATE AMINO TRANSFERASE 22 U/L (14-36); BILIRUBIN,DIRECT 0.3 mg/dL (0.0-0.4); BILIRUBIN,TOTAL 0.3 mg/dL (0.2-1.3); BLOOD UREA NITROGEN 44 mg/dL (7-20); CALCIUM 9.8 mg/dL (8.4-10.2); CARBON DIOXIDE 25 mmol/L (22-30); CHLORIDE 106 mmol/L (98-107); GLUCOSE 175 mg/dL (75-110); MAGNESIUM 1.6 mg/dL (1.6-2.3); POTASSIUM 4.1 mmol/L (3.6-5.0); SODIUM 142.8 mmol/L (137-145); TOTAL PROTEIN 6.2 g/dL (6.3-8.2)
[2017-10-22 08:11] LABS: ABSOLUTE LYMPHOCYTES# (MANUAL) 0.2 10^3/uL (0.5-4.7); ABSOLUTE MONOCYTES # (MANUAL) 0.1 10^3/uL (0.1-1.4); BASOPHILS % (MANUAL) 0 % (0-2); EOSINOPHILS % (MANUAL) 0 % (0-6); HYPOCHROMASIA SLIGHT; LYMPHOCYTES % (MANUAL) 3 % (13-45); METAMYELOCYTES % (MANUAL) 1 % (0); MONOCYTES % (MANUAL) 1 % (3-13); PLATELET COMMENT ADEQUATE; POLYCHROMASIA SLIGHT; SEGMENTED NEUTROPHILS % (MAN) 95 % (42-78); TOTAL CELLS COUNTED 100; TOXIC GRANULATION SLIGHT
--- NOTE | 2017-10-22 08:18 | PDOC PROGRESS REPORT ---
Subjective Progress Note for:: 10/22/17 Subjective:: The patient states to feel much better. She was able to ambulate with assistance from physical therapy. She denies any shortness of breath or cough. She does not want to go to the rehab. She states that her niece will come and stay with her at her house. Reason For Visit: EXAC COPD Physical Exam Vital Signs: Temp Pulse Resp BP Pulse Ox 98.2 F 82 16 139/72 H 96 10/21/17 23:45 10/22/17 07:00 10/22/17 02:24 10/21/17 23:45 10/22/17 02:24 Intake & Output 10/21/17 10/22/17 10/23/17 06:59 06:59 06:59 Intake Total 1180 1020 Balance 1180 1020 Weight 62.8 kg 62.8 kg General appearance: PRESENT: mild distress Head exam: PRESENT: atraumatic Neck exam: PRESENT: carotid bruit. ABSENT: JVD Respiratory exam: PRESENT: rhonchi. ABSENT: wheezes Cardiovascular exam: PRESENT: RRR, +S1, +S2 Pulses: PRESENT: +1 pedal pulses bilateral GI/Abdominal exam: PRESENT: normal bowel sounds, soft Extremities exam: PRESENT: tenderness Musculoskeletal exam: PRESENT: tenderness Neurological exam: PRESENT: alert, awake Results Laboratory Results: 10/22/17 06:21 10/22/17 06:21 10/22/17 10/22/17 06:21 06:21 WBC 6.3 RBC 4.18 Hgb 12.6 Hct 37.8 MCV 90 MCH 30.2 MCHC 33.5 RDW 13.4 Plt Count 252 Seg Neutrophils % Not Reportable Lymphocytes % Not Reportable Monocytes % Not Reportable Eosinophils % Not Reportable Basophils % Not Reportable Absolute Neutrophils Not Reportable Absolute Lymphocytes Not Reportable Absolute Monocytes Not Reportable Absolute Eosinophils Not Reportable Absolute Basophils Not Reportable Sodium 142.8 Potassium 4.1 Chloride 106 Carbon Dioxide 25 Anion Gap 12 BUN 44 H Creatinine 0.97 Est GFR ( Amer) > 60 Est GFR (Non-Af Amer) 56 L Glucose 175 H Calcium 9.8 Magnesium 1.6 Total Bilirubin 0.3 AST 22 ALT 37 Alkaline Phosphatase 53 Total Protein 6.2 L Albumin 3.6 Impressions: Chest X-Ray 10/21/17 00:00 IMPRESSION: No acute findings Assessment & Plan - Diagnosis (1) Acute exacerbation of chronic bronchitis Is this a current diagnosis for this admission?: Yes Plan: Improving with steroids. Will continue slow weaning of the prednisone (2) Anxiety Is this a current diagnosis for this admission?: Yes Plan: We will increase Xanax to every 6 hours (3) COPD exacerbation Is this a current diagnosis for this admission?: Yes (4) Tobacco dependency Is this a current diagnosis for this admission?: Yes Plan: Smoking cessation discussed in details (5) Diabetes mellitus Qualifiers: Diabetes mellitus type: type 2 Diabetes mellitus complication status: with hyperglycemia Is this a current diagnosis for this admission?: Yes Plan: Continue current treatment (6) Physical deconditioning Is this a current diagnosis for this admission?: Yes Plan: The patient states that she is feeling better and a little bit stronger and would like to go home instead of the rehab (7) Myopathy Is this a current diagnosis for this admission?: Yes Plan: Possibly related to high dose of steroids. Will wean off the steroids and start physical therapy (8) Bacterial pneumonia Is this a current diagnosis for this admission?: Yes Plan: Continue current antibiotics
[2017-10-22] MEDS: METFORMIN HCL 500 MG TABLET PO SCH ×2 (10:47→19:02)
[2017-10-22] MEDS: FLUTICASONE NASAL SPRAY 50 MCG/SPRY 120 SPRAY/16 GM NASL SCH ×2 (10:48→21:53)
[2017-10-22] MEDS: LEVOFLOXACIN 500 MG TABLET PO SCH (10:48)
[2017-10-22] MEDS: CEFTRIAXONE SODIUM 1,000 MG in DEXTROSE 5%-WATER 50 ML IV SCH (10:48)
[2017-10-22] MEDS: LANSOPRAZOLE 15 MG TAB.RAP.DR PO SCH (10:48)
[2017-10-22] MEDS: GUAIFENESIN 600 MG TABLET.SA PO SCH ×2 (10:48→21:52)
[2017-10-22] MEDS: ATORVASTATIN CALCIUM 10 MG TABLET PO SCH (10:48)
[2017-10-22] MEDS: FLUOXETINE HCL 20 MG CAPSULE PO SCH (10:48)
[2017-10-22] MEDS: PREDNISONE 20 MG TABLET PO SCH ×2 (10:48→19:02)
[2017-10-22] MEDS: ALPRAZOLAM 0.5 MG TABLET PO PRN ×2 (15:36→21:53)
[2017-10-22] MEDS: INSULIN LISPRO 100 UNIT/ML 3 ML VIAL SUBCUT PRN (21:52)
[2017-10-23] MEDS: IPRATROPIUM/ALBUTEROL 0.5-2.5 MG/3 ML AMPUL NEB SCH ×4 (02:32→20:24)
[2017-10-23] MEDS: HEPARIN SOD (PORCINE) 5,000 UNIT/ML 1 ML SYRINGE SUBCUT SCH ×3 (05:15→22:49)
--- NOTE | 2017-10-23 08:28 | PDOC DISCHARGE SUMMARY ---
General - Admit/Disc Date/PCP Admission Date/Primary Care Provider: 10/18/17 14:47 BRENNAN FELICIANO, Discharge Date: 10/23/17 - Discharge Diagnosis (1) Acute exacerbation of chronic bronchitis Is this a current diagnosis for this admission?: Yes Summary: Continue antibiotics and steroids. Stop smoking (2) Anxiety Is this a current diagnosis for this admission?: Yes Summary: Continue current medications for anxiety (3) COPD exacerbation Is this a current diagnosis for this admission?: Yes Summary: Continue inhalers flutter valve and incentive spirometry (4) Tobacco dependency Is this a current diagnosis for this admission?: Yes Summary: Discussed the smoking cessation (5) Diabetes mellitus Is this a current diagnosis for this admission?: Yes Summary: Continue current medications (6) Physical deconditioning Is this a current diagnosis for this admission?: Yes Summary: We will continue physical therapy. Will assess for home health (7) Myopathy Is this a current diagnosis for this admission?: Yes Summary: Symptoms should improve once the patient is off the steroids (8) Bacterial pneumonia Is this a current diagnosis for this admission?: Yes Summary: Complete antibiotics - Additional Information Resuscitation Status: Full Code Prescriptions: Guaifenesin [Mucinex Sr 600 mg Tablet.sa] 1,200 mg PO Q12 #60 tablet.sa Levofloxacin [Levaquin 500 mg Tablet] 500 mg PO DAILY #7 tablet Prednisone [Deltasone 20 mg Tablet] 10 mg PO BID #60 tablet Home Medications: Albuterol Sulfate [Ventolin HFA MDI 18 GM] 2 puff IH Q6HP PRN 10/17/17 Alprazolam [Xanax 0.5 mg Tablet] 0.5 mg PO Q8HP PRN 10/17/17 Atorvastatin Calcium [Lipitor 10 mg Tablet] 10 mg PO DAILY 10/17/17 Budesonide/Formoterol Fumarate [Symbicort 160-4.5 Mcg Inhaler] 2 puff IH Q12 Fluoxetine HCl [Prozac] 40 mg PO QAM 10/17/17 Hydrochlorothiazide [Hydrodiuril 25 mg Tablet] 25 mg PO QAM 10/17/17 Metformin HCl [Metformin HCl ER] 500 mg PO BIDBS 10/17/17 Omeprazole 20 mg PO DAILY 10/17/17 Guaifenesin [Mucinex Sr 600 mg Tablet.sa] 1,200 mg PO Q12 #60 tablet. Levofloxacin [Levaquin 500 mg Tablet] 500 mg PO DAILY #7 tablet 10/23/17 Prednisone [Deltasone 20 mg Tablet] 10 mg PO BID #60 tablet 10/23/17 History of Present Illness History of Present Illness: KASANDRA GRIGGS is a 77 year old female Hospital Course Hospital Course: The patient did well over the next several days after the admission. Her symptomatology have slowly improved. Unfortunately she has developed some deconditioning and mild myopathy because of being bedridden. She was able to ambulate with assistance and then on her own once we weaned off the steroids. Discussed with the patient the possibility of going to the rehab which she has declined. She does have a niece that will be staying with her over the next several weeks Physical Exam Vital Signs: Temp Pulse Resp BP Pulse Ox 98.2 F 80 15 151/83 H 96 10/23/17 00:12 10/23/17 02:28 10/23/17 02:28 10/23/17 00:12 10/23/17 02:28 Intake & Output 10/22/17 10/23/17 10/24/17 06:59 06:59 06:59 Intake Total 1020 840 Balance 1020 840 Weight 62.8 kg 62.8 kg General appearance: PRESENT: no acute distress Head exam: PRESENT: atraumatic Eye exam: PRESENT: conjunctiva pink Neck exam: ABSENT: JVD Respiratory exam: PRESENT: rhonchi. ABSENT: wheezes Cardiovascular exam: PRESENT: RRR, +S1, +S2 Pulses: PRESENT: +1 pedal pulses bilateral GI/Abdominal exam: PRESENT: normal bowel sounds, soft Extremities exam: PRESENT: other Musculoskeletal exam: PRESENT: other Results Laboratory Results: 10/22/17 06:21 10/22/17 06:21 Impressions: Chest X-Ray 10/21/17 00:00 IMPRESSION: No acute findings
[2017-10-23] MEDS: ATORVASTATIN CALCIUM 10 MG TABLET PO SCH (11:03)
[2017-10-23] MEDS: PREDNISONE 20 MG TABLET PO SCH ×2 (11:03→16:49)
[2017-10-23] MEDS: METFORMIN HCL 500 MG TABLET PO SCH ×2 (11:03→16:44)
[2017-10-23] MEDS: LANSOPRAZOLE 15 MG TAB.RAP.DR PO SCH (11:03)
[2017-10-23] MEDS: LEVOFLOXACIN 500 MG TABLET PO SCH (11:03)
[2017-10-23] MEDS: FLUOXETINE HCL 20 MG CAPSULE PO SCH (11:04)
[2017-10-23] MEDS: FLUTICASONE NASAL SPRAY 50 MCG/SPRY 120 SPRAY/16 GM NASL SCH ×2 (11:05→22:49)
[2017-10-23] MEDS: GUAIFENESIN 600 MG TABLET.SA PO SCH ×2 (11:05→22:49)
[2017-10-23] MEDS: ALPRAZOLAM 0.5 MG TABLET PO PRN ×2 (16:44→22:49)
[2017-10-23] MEDS: INSULIN LISPRO 100 UNIT/ML 3 ML VIAL SUBCUT PRN (22:49)
[2017-10-24] MEDS: IPRATROPIUM/ALBUTEROL 0.5-2.5 MG/3 ML AMPUL NEB SCH ×2 (02:31→09:38)
[2017-10-24] MEDS: HEPARIN SOD (PORCINE) 5,000 UNIT/ML 1 ML SYRINGE SUBCUT SCH (05:19)
[2017-10-24 08:37] VITALS: BP 139/78
[2017-10-24] MEDS: FLUOXETINE HCL 20 MG CAPSULE PO SCH (08:37)
[2017-10-24] MEDS: METFORMIN HCL 500 MG TABLET PO SCH (08:38)
== END 2017-10-24 10:08 | disposition home or self-care (01) | DRG 192 ==
LOC: ER 16:17 → EH 21:01 → 5 10-18 00:13 → OBSVTOIN 10-18 14:47
PROVIDERS: ADMIT Internal Medicine; ATTEND Internal Medicine
PROC: 3E0234Z Introduction of Serum, Toxoid and Vaccine into Muscle, Percutaneous Approach (ICD-10-PCS; principal; 2017-10-24)
DX: J44.1 Chronic obstructive pulmonary disease with (acute) exacerbation (principal); F41.9 Anxiety disorder, unspecified; I10 Essential (primary) hypertension; E11.65 Type 2 diabetes mellitus with hyperglycemia; G72.9 Myopathy, unspecified; F17.200 Nicotine dependence, unspecified, uncomplicated; Z79.899 Other long term (current) drug therapy; Z90.49 Acquired absence of other specified parts of digestive tract; Z79.82 Long term (current) use of aspirin; Z79.4 Long term (current) use of insulin; Z23 Encounter for immunization
CPT/HCPCS: 36415; 71045; 71046; 80048; 80053; 81001; 82550; 82553; 82962; 83605; 83735; 84484; 85025; 85379; 87040; 90686; 93005; 93010; 94640; 94667; 94668; 94799; 96374; 96375; 99285; G0378; G8978-GP; G8979-GP; J0696; J1644; J1815; J1956; J2930; J3490; J7512; J7620

== ENCOUNTER → 2018-10-29 | Outpatient (CLI) | payer MEDICARE, MEDICAID ==
--- NOTE | 2018-10-29 11:32 | RADIOLOGY REPORT (SQ) ---
EXAM DESCRIPTION: CHEST PA/LATERAL COMPLETED DATE/TIME: 10/29/2018 11:13 am REASON FOR STUDY: ACUTE BRONCHITIS, UNSPECIFIED,COPD COMPARISON: Two-view chest 10/21/2017, 03/15/2015, 09/02/2012 EXAM PARAMETERS: NUMBER OF VIEWS: two views TECHNIQUE: Digital Frontal and Lateral radiographic views of the chest acquired. RADIATION DOSE: NA LIMITATIONS: none FINDINGS: LUNGS AND PLEURA: No opacities, masses or pneumothorax. No pleural effusion. MEDIASTINUM AND HILAR STRUCTURES: No masses or contour abnormalities. HEART AND VASCULAR STRUCTURES: Heart normal size. No evidence for failure. BONES: No acute findings. HARDWARE: Ventriculoperitoneal shunt tubing is seen over the anterior right chest OTHER: No other significant finding. IMPRESSION: NO SIGNIFICANT RADIOGRAPHIC FINDING IN THE CHEST. TECHNICAL DOCUMENTATION: JOB ID: [id number] [employer]- All Rights Reserved Reading location - IP/workstation name: [email or web address]
== END ==
LOC: OD 10:59
PROVIDERS: ATTEND Family Medicine Geriatric Medicine
DX: J20.9 Acute bronchitis, unspecified (principal); J44.9 Chronic obstructive pulmonary disease, unspecified
CPT/HCPCS: 71046

== ENCOUNTER → 2018-11-28 | Outpatient (CLI) | payer MEDICARE, MEDICAID ==
[2018-11-28 11:09] LABS: ABSOLUTE EOSINOPHILS # (AUTO) 0.1 10^3/uL (0.0-0.6); ABSOLUTE LYMPHOCYTES (AUTO) 1.1 10^3/uL (0.5-4.7); ABSOLUTE MONOCYTES (AUTO) 0.3 10^3/uL (0.1-1.4); ABSOLUTE NEUT (AUTO) 3.2 10^3/uL (1.7-8.2); BASOPHILS % (AUTO) 0.6 % (0-2); HEMATOCRIT 39.1 % (36.0-47.0); HEMOGLOBIN 13.4 g/dL (12.0-15.5); LYMPHOCYTES % (AUTO) 22.8 % (13-45); MEAN CORPUSCULAR HGB CONC 34.4 g/dL (32.0-36.0); MEAN CORPUSCULAR VOLUME 90 fl (80-97); MONOCYTES % (AUTO) 6.3 % (3-13); PLATELET COUNT 209 10^3/uL (150-450); RED BLOOD COUNT 4.34 10^6/uL (3.72-5.28); RED CELL DISTRIBUTION WIDTH 13.2 % (11.5-14.0); SEGMENTED NEUTROPHILS % (AUTO) 68.3 % (42-78); TOTAL CELLS COUNTED % (AUTO) 100 %; WHITE BLOOD COUNT 4.6 10^3/uL (4.0-10.5)
[2018-11-28 11:33] LABS: ALANINE AMINOTRANSFERASE 24 U/L (9-52); ALBUMIN 4.5 g/dL (3.5-5.0); ALKALINE PHOSPHATASE 87 U/L (38-126); ANION GAP 11 (5-19); ASPARTATE AMINO TRANSFERASE 19 U/L (14-36); BILIRUBIN,DIRECT 0.2 mg/dL (0.0-0.4); BILIRUBIN,TOTAL 0.4 mg/dL (0.2-1.3); BLOOD UREA NITROGEN 18 mg/dL (7-20); CALCIUM 9.9 mg/dL (8.4-10.2); CARBON DIOXIDE 30 mmol/L (22-30); CHLORIDE 104 mmol/L (98-107); CHOLESTEROL 171.22 mg/dL (0-200); GLUCOSE 105 mg/dL (75-110); SODIUM 144.7 mmol/L (137-145); TOTAL PROTEIN 7.5 g/dL (6.3-8.2); TRIGLYCERIDES 197 mg/dL (<150)
[2018-11-28 11:44] LABS: DIRECT LDL 103 mg/dL (<100)
[2018-11-28 11:48] LABS: VLDL CHOLESTEROL 39.4 mg/dL (10-31)
[2018-11-28 11:48] LABS: APPEARANCE,URINE CLEAR; BILIRUBIN,URINE NEGATIVE (NEGATIVE); COLOR,URINE YELLOW; GLUCOSE, URINE NEGATIVE (NEGATIVE); KETONES,URINE NEGATIVE (NEGATIVE); LEUKOCYTE ESTERASE,URINE NEGATIVE (NEGATIVE); NITRITE,URINE NEGATIVE (NEGATIVE); PROTEIN,URINE NEGATIVE (NEGATIVE); URINE SPECIFIC GRAVITY 1.012; UROBILINOGEN,URINE NEGATIVE mg/dL (<2.0)
[2018-11-29 10:37] LABS: CREATININE URINE 53.6 mg/dL (Not Estab.); MICROALBUMIN URINE 7.2 ug/mL (Not Estab.)
== END ==
LOC: OD 10:26
PROVIDERS: ATTEND Internal Medicine
DX: I10 Essential (primary) hypertension (principal); E78.5 Hyperlipidemia, unspecified; N39.0 Urinary tract infection, site not specified; R53.83 Other fatigue; E11.9 Type 2 diabetes mellitus without complications
CPT/HCPCS: 36415; 80053; 80061; 81001; 82043; 82570; 83036; 83735; 84443; 85025; 87086

== ENCOUNTER → 2019-06-08 | Outpatient (CLI) | payer MEDICARE, MEDICAID ==
[2019-06-08 11:48] LABS: ABSOLUTE LYMPHOCYTES (AUTO) 0.9 10^3/uL (0.5-4.7); ABSOLUTE MONOCYTES (AUTO) 0.3 10^3/uL (0.1-1.4); ABSOLUTE NEUT (AUTO) 4.3 10^3/uL (1.7-8.2); BASOPHILS % (AUTO) 0.5 % (0-2); EOSINOPHILS % (AUTO) 0.7 % (0-6); HEMATOCRIT 42.1 % (36.0-47.0); HEMOGLOBIN 14.3 g/dL (12.0-15.5); LYMPHOCYTES % (AUTO) 16.7 % (13-45); MEAN CORPUSCULAR HEMOGLOBIN 30.1 pg (27.0-33.4); MEAN CORPUSCULAR VOLUME 89 fl (80-97); MONOCYTES % (AUTO) 5.8 % (3-13); PLATELET COUNT 170 10^3/uL (150-450); RED BLOOD COUNT 4.76 10^6/uL (3.72-5.28); RED CELL DISTRIBUTION WIDTH 13.8 % (11.5-14.0); SEGMENTED NEUTROPHILS % (AUTO) 76.3 % (42-78); TOTAL CELLS COUNTED % (AUTO) 100 %; WHITE BLOOD COUNT 5.6 10^3/uL (4.0-10.5)
[2019-06-08 12:02] LABS: ALBUMIN 4.5 g/dL (3.5-5.0); ALKALINE PHOSPHATASE 103 U/L (38-126); ANION GAP 10 (5-19); ASPARTATE AMINO TRANSFERASE 20 U/L (14-36); BILIRUBIN,DIRECT 0.1 mg/dL (0.0-0.4); BILIRUBIN,TOTAL 0.3 mg/dL (0.2-1.3); BLOOD UREA NITROGEN 21 mg/dL (7-20); CALCIUM 10.2 mg/dL (8.4-10.2); CARBON DIOXIDE 31 mmol/L (22-30); CHLORIDE 99 mmol/L (98-107); CHOLESTEROL 171.71 mg/dL (0-200); GLUCOSE 193 mg/dL (75-110); POTASSIUM 4.4 mmol/L (3.6-5.0); TOTAL PROTEIN 7.6 g/dL (6.3-8.2); TRIGLYCERIDES 208 mg/dL (<150)
[2019-06-08 12:13] LABS: DIRECT LDL 116 mg/dL (<100)
[2019-06-08 12:19] LABS: VLDL CHOLESTEROL 41.6 mg/dL (10-31)
== END ==
LOC: OD 10:31
PROVIDERS: ATTEND Internal Medicine
DX: E11.9 Type 2 diabetes mellitus without complications (principal); I10 Essential (primary) hypertension; E78.5 Hyperlipidemia, unspecified; R53.83 Other fatigue
CPT/HCPCS: 36415; 80053; 80061; 83036; 83525; 84443; 85025

== ENCOUNTER → 2019-12-15 | Outpatient (CLI) | payer MEDICARE, MEDICAID ==
--- NOTE | 2019-12-15 13:32 | RADIOLOGY REPORT (SQ) ---
EXAM DESCRIPTION: KNEE RIGHT 2 VIEWS COMPLETED DATE/TIME: 12/15/2019 1:17 pm REASON FOR STUDY: RT KNEE PAIN M25.561 PAIN IN RIGHT KNEE COMPARISON: None. NUMBER OF VIEWS: Two views. TECHNIQUE: AP and lateral radiographic images acquired of the right knee. LIMITATIONS: None. FINDINGS: MINERALIZATION: Normal. BONES: No fracture or dislocation. Right knee arthroplasty in good position. JOINT: No effusion. SOFT TISSUES: No soft tissue swelling. No radio-opaque foreign body. OTHER: No other significant finding. IMPRESSION: NEGATIVE STUDY OF THE RIGHT KNEE. NO RADIOGRAPHIC EVIDENCE OF ACUTE INJURY. TECHNICAL DOCUMENTATION: JOB ID: [id number] 2010 [employer]- All Rights Reserved Reading location - IP/workstation name: [email or web address]
== END ==
LOC: OD 13:05
PROVIDERS: ATTEND Physician Assistant Medical
DX: M25.561 Pain in right knee (principal)

== ENCOUNTER → 2020-04-19 | Outpatient (CLI) | payer MEDICARE, MEDICAID ==
[2020-04-19 12:25] LABS: ABSOLUTE EOSINOPHILS # (AUTO) 0.1 10^3/uL (0.0-0.6); ABSOLUTE LYMPHOCYTES (AUTO) 1.3 10^3/uL (0.5-4.7); ABSOLUTE MONOCYTES (AUTO) 0.6 10^3/uL (0.1-1.4); ABSOLUTE NEUT (AUTO) 4.1 10^3/uL (1.7-8.2); BASOPHILS % (AUTO) 0.6 % (0-2); EOSINOPHILS % (AUTO) 1.3 % (0-6); HEMATOCRIT 43.5 % (36.0-47.0); HEMOGLOBIN 14.8 g/dL (12.0-15.5); LYMPHOCYTES % (AUTO) 21.8 % (13-45); MEAN CORPUSCULAR HEMOGLOBIN 29.7 pg (27.0-33.4); MEAN CORPUSCULAR VOLUME 87 fl (80-97); MONOCYTES % (AUTO) 9.2 % (3-13); PLATELET COUNT 354 10^3/uL (150-450); RED BLOOD COUNT 4.98 10^6/uL (3.72-5.28); RED CELL DISTRIBUTION WIDTH 13.3 % (11.5-14.0); SEGMENTED NEUTROPHILS % (AUTO) 67.1 % (42-78); TOTAL CELLS COUNTED % (AUTO) 100 %; WHITE BLOOD COUNT 6.1 10^3/uL (4.0-10.5)
--- NOTE | 2020-04-19 12:27 | RADIOLOGY REPORT (SQ) ---
EXAM DESCRIPTION: CHEST PA/LATERAL IMAGES COMPLETED DATE/TIME: 04/19/2020 11:52 am REASON FOR STUDY: PRE OP COMPARISON: 10/29/2018. EXAM PARAMETERS: NUMBER OF VIEWS: two views TECHNIQUE: Digital Frontal and Lateral radiographic views of the chest acquired. RADIATION DOSE: NA LIMITATIONS: none FINDINGS: LUNGS AND PLEURA: No opacities, masses or pneumothorax. No pleural effusion. MEDIASTINUM AND HILAR STRUCTURES: No masses or contour abnormalities. HEART AND VASCULAR STRUCTURES: Heart normal size. No evidence for failure. BONES: No acute findings. HARDWARE: Tubing overlying the right soft tissues. OTHER: No other significant finding. IMPRESSION: NO SIGNIFICANT RADIOGRAPHIC FINDING IN THE CHEST. TECHNICAL DOCUMENTATION: JOB ID: [id number] 2010 [employer]- All Rights Reserved Reading location - IP/workstation name: [email or web address]
[2020-04-19 12:28] LABS: ABSOLUTE EOSINOPHILS # (AUTO) 0.1 10^3/uL (0.0-0.6); ABSOLUTE LYMPHOCYTES (AUTO) 1.3 10^3/uL (0.5-4.7); ABSOLUTE MONOCYTES (AUTO) 0.6 10^3/uL (0.1-1.4); ABSOLUTE NEUT (AUTO) 4.1 10^3/uL (1.7-8.2); BASOPHILS % (AUTO) 0.6 % (0-2); EOSINOPHILS % (AUTO) 1.3 % (0-6); HEMATOCRIT 43.5 % (36.0-47.0); HEMOGLOBIN 14.8 g/dL (12.0-15.5); LYMPHOCYTES % (AUTO) 21.8 % (13-45); MEAN CORPUSCULAR HEMOGLOBIN 29.7 pg (27.0-33.4); MEAN CORPUSCULAR VOLUME 87 fl (80-97); MONOCYTES % (AUTO) 9.2 % (3-13); PLATELET COUNT 354 10^3/uL (150-450); RED BLOOD COUNT 4.98 10^6/uL (3.72-5.28); RED CELL DISTRIBUTION WIDTH 13.3 % (11.5-14.0); SEGMENTED NEUTROPHILS % (AUTO) 67.1 % (42-78); TOTAL CELLS COUNTED % (AUTO) 100 %; WHITE BLOOD COUNT 6.1 10^3/uL (4.0-10.5)
[2020-04-19 12:49] LABS: ALBUMIN 4.7 g/dL (3.5-5.0); ALKALINE PHOSPHATASE 115 U/L (38-126); ANION GAP 9 (5-19); ASPARTATE AMINO TRANSFERASE 24 U/L (14-36); BILIRUBIN,DIRECT 0.1 mg/dL (0.0-0.4); BILIRUBIN,TOTAL 0.5 mg/dL (0.2-1.3); BLOOD UREA NITROGEN 26 mg/dL (7-20); CALCIUM 10.2 mg/dL (8.4-10.2); CARBON DIOXIDE 32 mmol/L (22-30); CHLORIDE 99 mmol/L (98-107); CHOLESTEROL 222.99 mg/dL (0-200); GLUCOSE 75 mg/dL (75-110); POTASSIUM 3.6 mmol/L (3.6-5.0); TOTAL PROTEIN 8.3 g/dL (6.3-8.2); TRIGLYCERIDES 261 mg/dL (<150); URIC ACID 8.1 mg/dL (2.5-7.5)
[2020-04-19 13:00] LABS: DIRECT LDL 147 mg/dL (<100)
[2020-04-19 13:01] LABS: VLDL CHOLESTEROL 52.2 mg/dL (10-31)
[2020-04-19 13:06] LABS: ANION GAP 9 (5-19); BLOOD UREA NITROGEN 26 mg/dL (7-20); CALCIUM 10.2 mg/dL (8.4-10.2); CARBON DIOXIDE 32 mmol/L (22-30); CHLORIDE 99 mmol/L (98-107); GLUCOSE 75 mg/dL (75-110); POTASSIUM 3.6 mmol/L (3.6-5.0)
[2020-04-19 14:28] LABS: APPEARANCE,URINE SLIGHTLY-CLOUDY; BILIRUBIN,URINE NEGATIVE (NEGATIVE); COLOR,URINE YELLOW; GLUCOSE, URINE NEGATIVE (NEGATIVE); KETONES,URINE NEGATIVE (NEGATIVE); LEUKOCYTE ESTERASE,URINE SMALL (NEGATIVE); NITRITE,URINE NEGATIVE (NEGATIVE); PROTEIN,URINE NEGATIVE (NEGATIVE); URINE SPECIFIC GRAVITY 1.024; UROBILINOGEN,URINE NEGATIVE mg/dL (<2.0)
--- NOTE | 2020-04-20 09:32 | EKG REPORT ---
SEVERITY:- ABNORMAL ECG - SINUS RHYTHM RIGHT BUNDLE BRANCH BLOCK : Confirmed by: Yon Medina 20-Apr-2020 09:31:52
== END ==
LOC: OD 10:57
PROVIDERS: ATTEND Orthopaedic Surgery
DX: Z01.810 Encounter for preprocedural cardiovascular examination (principal); Z01.811 Encounter for preprocedural respiratory examination; Z01.812 Encounter for preprocedural laboratory examination; E11.9 Type 2 diabetes mellitus without complications; I10 Essential (primary) hypertension; E78.5 Hyperlipidemia, unspecified; D64.9 Anemia, unspecified; M10.9 Gout, unspecified; M17.12 Unilateral primary osteoarthritis, left knee
CPT/HCPCS: 36415; 71046; 80048; 80061; 81001; 83036; 84443; 84550; 85025; 87070; 93005; 93010

== ENCOUNTER 2020-05-16 07:06 | Inpatient (IN) | payer MEDICARE, MEDICAID ==
[~2020-05-16 07:06] MED LIST: BUPIVACAINE INJ/PF LIPOSOME/PF 266 MG/20 ML SDV INJ PRN; CEFAZOLIN INJ 1 GM VIAL IV PRN; IBUPROFEN 800 MG in NORMAL SALINE 250 ML IV PRN; OXYCODONE HCL SR 10 MG TABLET PO PRN; PANTOPRAZOLE SODIUM 20 MG TABLET.DR PO PRN; VANCOMYCIN HCL 1,000 MG in DEXTROSE 5%-WATER 250 ML IV PRN
[2020-05-16] MEDS ORDERED: BUPIVACAINE HCL 0.25% /EPINEPHRINE INJ/PF 30 ML SDV ONE (07:30)
[2020-05-16] MEDS ORDERED: ROPIVACAINE HCL 0.5% INJ/PF (5 MG/1 ML) 30 ML SDV ONE (08:26)
[2020-05-16] MEDS ORDERED: EPINEPHRINE INJ/PF 1 MG/1 ML AMPULE ONE (08:27)
[2020-05-16] MEDS ORDERED: DEXAMETHASONE SOD PHOSPHATE INJ 4 MG/1 ML VIAL ONE (08:27)
[2020-05-16] MEDS ORDERED: PANTOPRAZOLE SODIUM 20 MG TABLET.DR PO ONE (08:32)
[2020-05-16] MEDS ORDERED: CEFAZOLIN 1 GM/D5W RTU 1 GM/50 ML RTUPB IV ONE (08:32)
[2020-05-16] MEDS ORDERED: OXYCODONE HCL SR 10 MG TABLET PO ONE (08:32)
[2020-05-16] MEDS ORDERED: MIDAZOLAM 2 MG/2 ML INJ ONE (08:42)
[2020-05-16] MEDS ORDERED: PROPOFOL INJ 200 MG/20 ML VIAL IV ONE (08:42)
[2020-05-16] MEDS ORDERED: TRANEXAMIC ACID INJ/PF 1,000 MG/10 ML SDV ONE ×2 (08:42→11:14)
[2020-05-16] MEDS ORDERED: ONDANSETRON HCL INJ/PF 4 MG/2 ML SDV ONE (08:42)
[2020-05-16] MEDS ORDERED: LIDOCAINE 2% INJ-PF (20 MG/ML) 10 ML AMPUL ONE (08:43)
[2020-05-16] MEDS ORDERED: DIPHENHYDRAMINE HCL 50 MG/ML VIAL IV PRN ×2 (09:50→10:27)
[2020-05-16] MEDS ORDERED: FENTANYL CITRATE INJ/PF 100 MCG/2 ML AMPUL IV PRN ×3 (09:50)
[2020-05-16] MEDS ORDERED: MORPHINE SULFATE 10 MG/ML INJ IV PRN ×3 (09:50→11:16)
[2020-05-16] MEDS ORDERED: OXYCODONE-ACETAMINOPHEN 5-325 MG TABLET PO PRN ×2 (09:50)
--- NOTE | 2020-05-16 10:23 | Operative Report ---
Operative Report DATE OF SURGERY: 05/16/20 PREOPERATIVE DIAGNOSIS: Left knee arthritis OPERATION: Left knee arthroplasty SURGEON: MAUREEN MACEDO ANESTHESIA: Spinal TISSUE REMOVED OR ALTERED: Bone to pathology ESTIMATED BLOOD LOSS: 75 PROCEDURE: Implants used: Femur: Luis E triathlon size 4 CR femur Tibia: 3 tibia Tibial liner: 11 mm CS insert Patella: 35 mm oval patella Procedure with the patient supine on the operating table the left the limb is prepped and draped in a sterile fashion. The limb was elevated for exsanguination and the tourniquet inflated to 280 torr. A standard midline median parapatellar approach the knee is taken. Access is gained to the femoral canal through the intercondylar notch. Intramedullary alignment instrumentation used to resect 10 mm of distal femur in 5 of valgus. Sizing guide indicated a size 4 femur. Appropriate cutting jig is then used to fashion anterior posterior and chamfer cuts. A trial reduction femurs performed and this is judged to be adequate. Attention was next turned to the tibia. Using an extra medullary alignment system 11 millimeters was resected off the lateral tibial plateau to make up for a medial tibial plateau defect. This is sized to a size 3 tibia. A trial reduction was now performed with a 4 femur and a[3] tibia using a[11] millimeters spacer. It is full extension and central patellofemoral tracking. The articular surface the patella was next resected using an oscillating saw. All trial implants were removed. Polymethylmethacrylate is mixed and used to cement the above implants in place. On adequate curing the cement excess cement was removed the tourniquet was deflated hemostasis obtained the wound is then closed in layers using interrupted Vicryl followed by afshan. A sterile compressive dressing was applied and the patient returned to recovery room in satisfactory condition.
[2020-05-16] MEDS ORDERED: ZOLPIDEM TARTRATE 5 MG TABLET PO PRN (10:27)
[2020-05-16] MEDS ORDERED: OXYCODONE HCL IR 5 MG TABLET PO PRN (10:27)
[2020-05-16] MEDS ORDERED: ONDANSETRON 4 MG TAB.RAPDIS PO PRN (10:27)
[2020-05-16] MEDS ORDERED: RINGERS SOLUTION,LACTATED 1,000 ML IV PRN (10:27)
[2020-05-16] MEDS ORDERED: ONDANSETRON HCL INJ/PF 4 MG/2 ML SDV IV PRN (10:27)
[2020-05-16] MEDS ORDERED: MAG HYDROX/AL HYDROX/SIMETH SUSP 30 ML UDCUP PO PRN (10:27)
[2020-05-16] MEDS ORDERED: ACETAMINOPHEN 325 MG TABLET PO PRN (10:27)
[2020-05-16] MEDS ORDERED: TRANEXAMIC ACID INJ/PF 1,000 MG/10 ML SDV IV ONE (10:27)
--- NOTE | 2020-05-16 11:31 | RADIOLOGY REPORT (SQ) ---
EXAM DESCRIPTION: KNEE LEFT 2 VIEWS IMAGES COMPLETED DATE/TIME: 05/16/2020 11:23 am REASON FOR STUDY: Post OP -Long Cassette in PACU M17.12 UNILATERAL PRIMARY OSTEOARTHRITIS, LEFT KNE E D46.4 REFRACTORY ANEMIA, UNSPECIFIED COMPARISON: None. NUMBER OF VIEWS: Two view(s). TECHNIQUE: Digital radiographic images of the left knee post-procedure. LIMITATIONS: None. FINDINGS: BONES: No worrisome or unexpected findings post-procedure. DEVICE: Total knee arthroplasty. SOFT TISSUES: No worrisome findings. Expected postoperative soft tissue changes. IMPRESSION: SATISFACTORY POSTOPERATIVE LEFT KNEE. TECHNICAL DOCUMENTATION: JOB ID: [id number] 2010 [employer]- All Rights Reserved Reading location - IP/workstation name: [email or web address]
[2020-05-16] MEDS ORDERED: IBUPROFEN 800 MG in NORMAL SALINE 250 ML IV SCH (14:00)
[2020-05-16] MEDS ORDERED: PHENYLEPHRINE HCL INJ/PF 10 MG/1 ML SDV ONE (14:31)
[2020-05-16] MEDS ORDERED: LIDOCAINE 2% INJ-PF (20 MG/ML) 2 ML AMPUL ONE (14:31)
[2020-05-16] MEDS: SENNOSIDES/DOCUSATE 8.6-50 MG 1 EACH TABLET PO SCH (17:55)
[2020-05-16] MEDS: PREGABALIN 75 MG CAPSULE PO SCH (17:55)
[2020-05-16] MEDS: IBUPROFEN 800 MG in NORMAL SALINE 250 ML IV SCH (17:56)
[2020-05-16] MEDS: OXYCODONE HCL SR 10 MG TABLET PO SCH (21:30)
[2020-05-16] MEDS ORDERED: RIVAROXABAN 10 MG TABLET PO SCH (22:00)
[2020-05-16] MEDS ORDERED: VANCOMYCIN HCL 1,000 MG in DEXTROSE 5%-WATER 250 ML IV ONE (22:30)
[2020-05-17] MEDS: IBUPROFEN 800 MG in NORMAL SALINE 250 ML IV SCH (01:10)
[2020-05-17] MEDS ORDERED: PANTOPRAZOLE SODIUM 20 MG TABLET.DR PO SCH (06:00)
[2020-05-17] MEDS ORDERED: PANTOPRAZOLE SODIUM 40 MG TABLET.DR PO SCH (06:00)
[2020-05-17 06:11] LABS: HEMOGLOBIN 11.9 g/dL (12.0-15.5); MEAN CORPUSCULAR HEMOGLOBIN 30.2 pg (27.0-33.4); MEAN CORPUSCULAR HGB CONC 34.2 g/dL (32.0-36.0); MEAN CORPUSCULAR VOLUME 88 fl (80-97); PLATELET COUNT 226 10^3/uL (150-450); RED BLOOD COUNT 3.96 10^6/uL (3.72-5.28); RED CELL DISTRIBUTION WIDTH 13.1 % (11.5-14.0); WHITE BLOOD COUNT 8.9 10^3/uL (4.0-10.5)
[2020-05-17 06:34] LABS: ANION GAP 10 (5-19); BLOOD UREA NITROGEN 25 mg/dL (7-20); CALCIUM 8.8 mg/dL (8.4-10.2); CARBON DIOXIDE 25 mmol/L (22-30); CHLORIDE 102 mmol/L (98-107); GLUCOSE 187 mg/dL (75-110); POTASSIUM 4.2 mmol/L (3.6-5.0)
--- NOTE | 2020-05-17 07:09 | PDOC DISCHARGE SUMMARY ---
Impression - Admit/DC Date/PCP Admission Date/Primary Care Provider: BRENNAN FELICIANO MD Discharge Date: 05/17/20 - Discharge Diagnosis (1) Arthritis of left knee Is this a current diagnosis for this admission?: Yes - Additional Information Resuscitation Status: Full Code Discharge Diet: As Tolerated, Regular Discharge Activity: Balance Activity w/Rest, No tub bath Referrals: MAUREEN MACEDO MD [ACTIVE STAFF] - 05/31/20 8:30 am Home Medications: Albuterol Sulfate [Ventolin HFA MDI 18 GM] 2 puff IH Q6HP PRN 10/17/17 Atorvastatin Calcium [Lipitor 10 mg Tablet] 10 mg PO DAILY 10/17/17 Budesonide/Formoterol Fumarate [Symbicort 160-4.5 Mcg Inhaler] 2 puff IH Q12 10/17/17 Fluoxetine HCl [Prozac] 40 mg PO QAM 10/17/17 Hydrochlorothiazide [Hydrodiuril 25 mg Tablet] 25 mg PO QAM 10/17/17 Omeprazole 20 mg PO DAILY 10/17/17 Glimepiride 1 mg PO DAILY 05/16/20 History of Present Illiness History of Present Illness: KASANDRA GRIGGS is a 80 year old female 80-year-old white female with progressive left knee pain and functional disability second osteoarthritis. Patient is admitted for an elective left knee arthroplasty. Hospital Course Hospital Course: Patient is admitted through the operating where she undergoes an uncomplicated left knee arthroplasty. She is returned to the floor in satisfactory addition. She is seen by physical therapy begun on weightbearing as tolerated basis. Compressive dressing is removed on the first postoperative morning. Underlying OpSite dressing remains clean dry and intact. Physical Exam Vital Signs: Temp Pulse Resp BP Pulse Ox 36.4 C 91 18 140/68 H 97 05/16/20 23:35 05/16/20 23:35 05/16/20 23:35 05/16/20 23:35 05/16/20 23:35 Intake & Output 05/16/20 05/17/20 05/18/20 06:59 06:59 06:59 Intake Total 2625 Output Total 75 Balance 2550 Weight 63 kg General appearance: PRESENT: no acute distress, mild distress Head exam: PRESENT: normocephalic Respiratory exam: PRESENT: unlabored Cardiovascular exam: PRESENT: RRR Pulses: PRESENT: +1 pedal pulses bilateral Vascular exam: PRESENT: normal capillary refill GI/Abdominal exam: PRESENT: soft Rectal exam: PRESENT: deferred Musculoskeletal exam: PRESENT: other - Left lower extremity compressive dressing is removed. Underlying OpSite dressing is clean dry and intact. Minimal pedal edema. Distal neurovascular examination is intact. Results Laboratory Results: WBC 8.9 10^3/uL (4.0-10.5) 05/17/20 05:43 RBC 3.96 10^6/uL (3.72-5.28) 05/17/20 05:43 Hgb 11.9 g/dL (12.0-15.5) L 05/17/20 05:43 Hct 35.0 % (36.0-47.0) L 05/17/20 05:43 MCV 88 fl (80-97) 05/17/20 05:43 MCH 30.2 pg (27.0-33.4) 05/17/20 05:43 MCHC 34.2 g/dL (32.0-36.0) 05/17/20 05:43 RDW 13.1 % (11.5-14.0) 05/17/20 05:43 Plt Count 226 10^3/uL (150-450) 05/17/20 05:43 Sodium 136.8 mmol/L (137-145) L 05/17/20 05:43 Potassium 4.2 mmol/L (3.6-5.0) 05/17/20 05:43 Chloride 102 mmol/L (98-107) 05/17/20 05:43 Carbon Dioxide 25 mmol/L (22-30) 05/17/20 05:43 Anion Gap 10 (5-19) 05/17/20 05:43 BUN 25 mg/dL (7-20) H 05/17/20 05:43 Creatinine 1.17 mg/dL (0.52-1.25) 05/17/20 05:43 Est GFR ( Amer) 54 (>60) L 05/17/20 05:43 Est GFR (MDRD) Non-Af 45 (>60) L 05/17/20 05:43 Glucose 187 mg/dL (75-110) H 05/17/20 05:43 POC Glucose 118 mg/dL (70-110) H 05/16/20 08:38 Calcium 8.8 mg/dL (8.4-10.2) 05/17/20 05:43 COVID-19 Source NASOPHARYNGEAL 05/12/20 16:22 COVID-19 (HORACIO) NOT DETECTED 05/12/20 16:22 Impressions: Knee X-Ray 05/16/20 10:29 IMPRESSION: SATISFACTORY POSTOPERATIVE LEFT KNEE. Plan Plan of Treatment: Patient to be discharged home on a weightbearing as tolerated toward basis with home health services and DME. Follow-up with Dr. Macedo and [facility] for surgery in 2 weeks for staple removal. Time Spent: Less than 30 Minutes Stroke Is this a Stroke Patient?: No Stroke Pt being discharged on Anti-thrombolytic therapy?: Yes Acute Heart Failure - Is this a Heart Failure Patient?: No
[2020-05-17] MEDS ORDERED: GLIMEPIRIDE 1 MG TABLET PO SCH (08:00)
[2020-05-17] MEDS ORDERED: HYDROCHLOROTHIAZIDE 25 MG TABLET PO SCH (08:00)
[2020-05-17] MEDS ORDERED: FLUOXETINE HCL 20 MG CAPSULE PO SCH (08:00)
[2020-05-17] MEDS: OXYCODONE HCL SR 10 MG TABLET PO SCH (09:25)
[2020-05-17] MEDS: SENNOSIDES/DOCUSATE 8.6-50 MG 1 EACH TABLET PO SCH (09:25)
[2020-05-17] MEDS: PREGABALIN 75 MG CAPSULE PO SCH (09:25)
[2020-05-17] MEDS ORDERED: PRENATAL VITAMIN W DHA CAPSULE PO SCH (10:00)
[2020-05-17 12:50] VITALS: BP 136/72
[2020-05-17] MEDS ORDERED: ATORVASTATIN CALCIUM 10 MG TABLET PO SCH (22:00)
== END 2020-05-17 12:59 | disposition home health service (06) | DRG 470 ==
LOC: OROUT 07:06 → EDSTATUS 09:00 → 4S 10:27 → OROUT 10:27 → 4S 12:03
PROVIDERS: ADMIT Orthopaedic Surgery; ATTEND Orthopaedic Surgery
PROC: 0SRD0J9 Replacement of Left Knee Joint with Synthetic Substitute, Cemented, Open Approach (ICD-10-PCS; principal; 2020-05-16 09:00)
DX: M17.12 Unilateral primary osteoarthritis, left knee (principal); I10 Essential (primary) hypertension; J44.9 Chronic obstructive pulmonary disease, unspecified; E11.9 Type 2 diabetes mellitus without complications; E78.5 Hyperlipidemia, unspecified; F17.210 Nicotine dependence, cigarettes, uncomplicated; Z03.818 Encounter for observation for suspected exposure to other biological agents ruled out; Z96.651 Presence of right artificial knee joint; Z79.84 Long term (current) use of oral hypoglycemic drugs; Z79.899 Other long term (current) drug therapy
CPT/HCPCS: 01402; 36415; 64447; 76942; 80048; 82962; 85027; 87635; 88305; 88311; 94799; C1713; C1776; C9803; J0171; J0690; J1100; J1741; J2250; J2270; J2370; J2405; J2704; J2795; J3370; J3490; J7050; J7060

== ENCOUNTER 2020-08-26 11:25 | Emergency (ER) | payer MEDICARE, MEDICAID ==
--- NOTE | 2020-08-26 12:57 | ER Document Report ---
ED Medical Screen (RME) - General Chief Complaint: Breathing Difficulty Stated Complaint: SHORT OF BREATH,CHEST TIGHTNESS Time Seen by Provider: 08/26/20 12:50 Primary Care Provider: BRENNAN FELICIANO MD [Primary Care Provider] - Follow up as needed Mode of Arrival: Wheelchair Information source: Patient Notes: 80-year-old female presented to ED for difficulty breathing for couple days cough congestion history of COPD diabetes high blood pressure cholesterol reflux near the knee surgery. She does smoke 1/2 pack a day. She is alert oriented respirations regular nonlabored. She does cough some while she is being examined. The patient was evaluated during the global Covid 19 pandemic, and that diagnosis was suspected/considered upon their initial presentation. Their evaluation, treatment and testing was consistent with current guidelines for patients who present with complaints or symptoms that may be related to Covid 19. I have greeted and performed a rapid initial assessment of this patient. A comprehensive ED assessment and evaluation of the patient, analysis of test results and completion of medical decision making process will be conducted by an additional ED providers. TRAVEL OUTSIDE OF THE [place] IN LAST 30 DAYS: No - Related Data Allergies/Adverse Reactions: aspirin [Aspirin] Allergy (Mild, Verified 08/26/20 12:50) RASH Home Medications: dm. copd. htn. cholesterol. gerd. anti inflammatory Past Medical History - Social History Chew tobacco use (# tins/day): No Frequency of alcohol use: None Drug Abuse: None - Past Medical History Cardiac Medical History: Reports: Hx Hypertension Denies: Hx Heart Attack Pulmonary Medical History: Reports: Hx Bronchitis, Hx COPD, Hx Pneumonia Denies: Hx Asthma, Hx Tuberculosis Neurological Medical History: Denies: Hx Cerebrovascular Accident, Hx Seizures Endocrine Medical History: Reports: Hx Diabetes Mellitus Type 2 Renal/ Medical History: Denies: Hx Peritoneal Dialysis GI Medical History: Denies: Hx Hepatitis, Hx Hiatal Hernia, Hx Ulcer Psychiatric Medical History: Denies: Hx Depression Infectious Medical History: Denies: Hx Hepatitis Past Surgical History: Reports: Hx Cholecystectomy. Denies: Hx Hysterectomy, Hx Mastectomy, Hx Open Heart Surgery, Hx Pacemaker Physical Exam - Vital signs Vitals: Temp Pulse Resp BP Pulse Ox 98.1 F 97 32 H 146/77 H 96 08/26/20 11:59 08/26/20 11:59 08/26/20 11:59 08/26/20 11:59 08/26/20 11:59 Course - Vital Signs Vital signs: Temp Pulse Resp BP Pulse Ox 98.1 F 97 32 H 146/77 H 96 08/26/20 12:51 08/26/20 11:59 08/26/20 11:59 08/26/20 11:59 08/26/20 11:59 Doctor's Discharge - Discharge Referrals: BRENNAN FELICIANO MD [Primary Care Provider] - Follow up as needed
--- NOTE | 2020-08-26 13:43 | EKG REPORT ---
SEVERITY:- ABNORMAL ECG - SINUS RHYTHM RIGHT BUNDLE BRANCH BLOCK QT PROLONGATION NONSPECIFIC ST-T CHANGES- INFERIOR LEADS : Confirmed by: Barrett Trejo MD 26-Aug-2020 13:42:18
[2020-08-26 13:49] LABS: ABSOLUTE BASOPHILS # (AUTO) 0.1 10^3/uL (0.0-0.2); ABSOLUTE EOSINOPHILS # (AUTO) 0.1 10^3/uL (0.0-0.6); ABSOLUTE LYMPHOCYTES (AUTO) 0.6 10^3/uL (0.5-4.7); ABSOLUTE MONOCYTES (AUTO) 0.6 10^3/uL (0.1-1.4); ABSOLUTE NEUT (AUTO) 6.1 10^3/uL (1.7-8.2); BASOPHILS % (AUTO) 0.7 % (0-2); EOSINOPHILS % (AUTO) 1.6 % (0-6); HEMATOCRIT 40.9 % (36.0-47.0); HEMOGLOBIN 13.6 g/dL (12.0-15.5); LYMPHOCYTES % (AUTO) 8.2 % (13-45); MEAN CORPUSCULAR HEMOGLOBIN 28.1 pg (27.0-33.4); MEAN CORPUSCULAR HGB CONC 33.2 g/dL (32.0-36.0); MEAN CORPUSCULAR VOLUME 85 fl (80-97); MONOCYTES % (AUTO) 7.8 % (3-13); PLATELET COUNT 274 10^3/uL (150-450); RED BLOOD COUNT 4.83 10^6/uL (3.72-5.28); RED CELL DISTRIBUTION WIDTH 13.8 % (11.5-14.0); SEGMENTED NEUTROPHILS % (AUTO) 81.7 % (42-78); TOTAL CELLS COUNTED % (AUTO) 100 %; WHITE BLOOD COUNT 7.4 10^3/uL (4.0-10.5)
--- NOTE | 2020-08-26 14:04 | RADIOLOGY REPORT (SQ) ---
EXAM DESCRIPTION: CHEST SINGLE VIEW IMAGES COMPLETED DATE/TIME: 08/26/2020 1:52 pm REASON FOR STUDY: Cough congestion short of breath COMPARISON: 04/19/2020 EXAM PARAMETERS: NUMBER OF VIEWS: One view. TECHNIQUE: Single frontal radiographic view of the chest acquired. RADIATION DOSE: NA LIMITATIONS: None. FINDINGS: LUNGS AND PLEURA: Minimal scarring at the lung bases. No acute pulmonary consolidation. No pneumothorax or pleural effusion. MEDIASTINUM AND HILAR STRUCTURES: No masses. Contour normal. HEART AND VASCULAR STRUCTURES: Heart normal in size. Normal vasculature. BONES: No acute findings. HARDWARE: Partially visualized ventriculoperitoneal shunt on the right, unchanged finding. OTHER: No other significant finding. IMPRESSION: 1. No significant interval changes since the previous examination dated 04/19/2020. No acute findings. TECHNICAL DOCUMENTATION: JOB ID: [id number] 2010 [employer]- All Rights Reserved Reading location - IP/workstation name: [email or web address]
[2020-08-26] MEDS ORDERED: IPRATROPIUM/ALBUTEROL 0.5-2.5 MG/3 ML AMPUL NEB ONE (14:13)
[2020-08-26] MEDS ORDERED: METHYLPREDNISOLONE INJ 125 MG/2 ML SDV IV ONE (14:14)
[2020-08-26 14:24] LABS: ALBUMIN 4.4 g/dL (3.5-5.0); ALKALINE PHOSPHATASE 112 U/L (38-126); ANION GAP 10 (5-19); ASPARTATE AMINO TRANSFERASE 23 U/L (14-36); BILIRUBIN,DIRECT 0.3 mg/dL (0.0-0.4); BILIRUBIN,TOTAL 0.4 mg/dL (0.2-1.3); BLOOD UREA NITROGEN 23 mg/dL (7-20); CALCIUM 9.6 mg/dL (8.4-10.2); CARBON DIOXIDE 31 mmol/L (22-30); CHLORIDE 97 mmol/L (98-107); GLUCOSE 120 mg/dL (75-110); POTASSIUM 3.8 mmol/L (3.6-5.0); TOTAL PROTEIN 7.8 g/dL (6.3-8.2)
[2020-08-26 14:38] LABS: A TYPE INFLUENZA AG NEGATIVE (NEGATIVE); B INFLUENZA AG NEGATIVE (NEGATIVE)
[2020-08-26] MEDS: MAGNESIUM SULFATE/D5W 1 GM/100 ML RTUPB IV SCH ×2 (15:08→16:01)
--- NOTE | 2020-08-26 15:11 | ER Document Report ---
Entered by ONDINA HODGSON SCRIBE 08/26/20 1415 Acting as scribe for:MARION BATRES MD ED Respiratory Problem - General Chief Complaint: Breathing Difficulty Stated Complaint: SHORT OF BREATH,CHEST TIGHTNESS Time Seen by Provider: 08/26/20 12:50 Primary Care Provider: BRENNAN FELICIANO MD [Primary Care Provider] - Follow up as needed Mode of Arrival: Wheelchair Information source: Patient Notes: This 80 year old female patient presents to the emergency department today with complaints of shortness of breath for the last few days. Patient states that she uses albuterol breathing treatments and inhalers at home with little relief. She reports that she has had a cough with clear thick sputum as well. TRAVEL OUTSIDE OF THE [place] IN LAST 30 DAYS: No - Related Data Allergies/Adverse Reactions: aspirin [Aspirin] Allergy (Mild, Verified 08/26/20 12:50) RASH Home Medications: dm. copd. htn. cholesterol. gerd. anti inflammatory Past Medical History - General Information source: Patient - Social History Smoking Status: Current Every Day Smoker Cigarette use (# per day): Yes Chew tobacco use (# tins/day): No Frequency of alcohol use: None Drug Abuse: None Lives with: Family Family History: Hypertension Patient has homicidal ideation: No - Past Medical History Cardiac Medical History: Reports: Hx Hypertension Pulmonary Medical History: Reports: Hx Bronchitis, Hx COPD, Hx Pneumonia Endocrine Medical History: Reports: Hx Diabetes Mellitus Type 2 Infectious Medical History: Denies: Hx Hepatitis Past Surgical History: Reports: Hx Cholecystectomy - Immunizations Hx Pneumococcal Vaccination: 09/25/14 Review of Systems - Review of Systems Constitutional: No symptoms reported EENT: No symptoms reported Cardiovascular: No symptoms reported Respiratory: See HPI, Cough, Short of breath, Sputum - Clear thick sputum, Wheezing, Other - Impaired exercise tolerance Gastrointestinal: No symptoms reported Genitourinary: No symptoms reported Female Genitourinary: Post menopausal Musculoskeletal: Back pain, Joint pain Skin: No symptoms reported Hematologic/Lymphatic: No symptoms reported Neurological/Psychological: No symptoms reported -: Yes All other systems reviewed and negative Physical Exam - Vital signs Vitals: Temp Pulse Resp BP Pulse Ox 98.1 F 97 32 H 146/77 H 96 08/26/20 11:59 08/26/20 11:59 08/26/20 11:59 08/26/20 11:59 08/26/20 11:59 - Notes Notes: Physical Exam: General: Alert, appears short of breath. HEENT: Normocephalic. Atraumatic. PERRL. Extraocular movements intact. Orop harynx clear. Neck: Supple. Non-tender. Respiratory: Moderate respiratory distress. Tachypneic. Intercostal retractions. Wheezing and rhonchi bilaterally. Cardiovascular: Mildly tachycardic in the low 100s, regular rhythm. Abdominal: Normal Inspection. Non-tender. No distension. Normal Bowel Sounds. Back: No gross abnormalities. Extremities: Moves all four extremities. Upper extremities: Normal inspection. Normal ROM. Lower extremities: Normal inspection. No edema. Normal ROM. Neurological: Normal cognition. AAOx4. Normal speech. Psychological: Normal affect. Normal Mood. Skin: Warm. Dry. Normal color. Course - Re-evaluation Re-evalutation: 08/26/20 15:31 Patient has mostly expiratory wheezes and rhonchi at this time. She does still have some retracting. Her room air pulse oximetry reading is 91%. She is eating crackers at this time. Her first question was "you are not going to keep me or you". It is difficult to tell how close she is to baseline because she is not a very good historian. 08/26/20 17:01 The patient's oxygen saturation goes up to 95% when she is trying to sit up and talking. She still has diffuse wheezes with some accessory muscle use. Her attendant who has been with her for the last 2 months states she is always breathing about like this in the patient states that her breathing right now is close to normal. The attendant tells me the patient is unable to walk across the room without giving out of breath and that has been going on for as long as she has been staying with the patient. She reports she brought the patient here today because patient was complaining of tightness in the chest. Patient states that tightness is gone that she feels great and ready go home. Her troponin was undetectable. EKG does not show acute ischemic changes. 08/26/20 17:02 The patient was evaluated during the global COVID-19 pandemic and that diagnosis was suspected/considered upon their initial presentation. Their evaluation, treatment and testing was consistent with current guidelines for patients who present with complaints or symptoms that may be related to COVID-19. - Vital Signs Vital signs: Temp Pulse Resp BP Pulse Ox 98.1 F 97 32 H 146/77 H 96 08/26/20 12:51 08/26/20 11:59 08/26/20 11:59 08/26/20 11:59 08/26/20 11:59 - Laboratory Result Diagrams: 08/26/20 13:24 08/26/20 13:24 Laboratory results interpreted by me: 08/26/20 08/26/20 13:24 13:24 Lymph % (Auto) 8.2 L Seg Neutrophils % 81.7 H Chloride 97 L Carbon Dioxide 31 H BUN 23 H Creatinine 1.26 H Est GFR ( Amer) 50 L Est GFR (MDRD) Non-Af 41 L Glucose 120 H - Diagnostic Test Radiology reviewed: Image reviewed, Reports reviewed - Chest x-ray shows COPD without acute changes. - EKG Interpretation by Me EKG shows normal: Sinus rhythm, [place], QRS Complexes. abnormal: Intervals - Prolonged QT interval, ST-T Waves - Nonspecific inferior ST-T wave changes Rate: Normal - 98 Rhythm: NSR [place]/QRS: RBBB Discharge - Discharge Clinical Impression: COPD with acute exacerbation Condition: Stable Disposition: HOME, SELF-CARE Instructions: COVID-19 Guidance for Persons Under Investigation Additional Instructions: Start taking the prednisone tomorrow. You were given today's dose here in the emergency room. Use your nebulizer every 2-4 hours for your wheezing. Be sure to drink plenty of fluids throughout the day in the evening. Self isolate until you get the results of the Covid test. Follow-up with Dr. Feliciano Saturday to see if he would like you to see a lung specialist. Be sure he knows how poor your exercise tolerance is. RETURN TO THE EMERGENCY ROOM IF ANY NEW OR WORSENING SYMPTOMS. Prescriptions: Prednisone [Deltasone 10 mg Tablet] 10 mg PO ASDIR PRN #21 tablet PRN Reason: Referrals: BRENNAN FELICIANO MD [Primary Care Provider] - 08/29/20 I personally performed the services described in the documentation, reviewed and edited the documentation which was dictated to the scribe in my presence, and it accurately records my words and actions.
[2020-08-26] MEDS ORDERED: ALBUTEROL SULFATE 0.083% NEB 2.5 MG/3 ML AMPUL NEB ONE ×2 (15:13→15:32)
[2020-08-26] MEDS ORDERED: PREDNISONE 20 MG TABLET PO ONE (15:32)
[2020-08-26 17:23] VITALS: BP 141/79
== END 2020-08-26 17:24 | disposition home or self-care (01) ==
LOC: ER 11:25
DX: J44.1 Chronic obstructive pulmonary disease with (acute) exacerbation (principal); R06.02 Shortness of breath; R05 Cough; R00.0 Tachycardia, unspecified; I45.10 Unspecified right bundle-branch block; I10 Essential (primary) hypertension; E11.9 Type 2 diabetes mellitus without complications; Z79.899 Other long term (current) drug therapy; Z87.01 Personal history of pneumonia (recurrent); Z88.8 Allergy status to other drugs, medicaments and biological substances; Z20.828 Contact with and (suspected) exposure to other viral communicable diseases
CPT/HCPCS: 93005; 94640 ×2; 99285; 96361; 96374; 36415; 87070; 87880; 85025; 80053; 84484; 87804; 71045; 93010; U0003; J2930; J3475; A9270 ×2; C9803; 87635; J7512; J7613